=== PATIENT | female | born 1940 | race Caucasian/White ===

== ENCOUNTER 2021-04-08 18:55 | Emergency (ER) | payer OTHER, MEDICARE ==
[2021-04-08 19:45] LABS: Absolute Lymphocytes (CBC) 1.7 K/uL (0.7-4.9); Basophils % 0.4 % (0-1.3); Hematocrit 42.6 % (36.0-45.0); Lymphocytes % 25.6 % (15.3-44.8); MPV 7.7 fL (7.6-11.3); RBC Red Blood Cell Count 4.79 M/uL (3.86-4.86)
[2021-04-08 19:57] LABS: Albumin 3.6 g/dL (3.4-5.0); Bilirubin Direct 0.1 mg/dL (0-0.2); Bilirubin Total 0.3 mg/dL (0.2-1.0); Potassium 4.3 mmol/L (3.5-5.1); Protein, Total 7.5 g/dL (6.4-8.2)
[2021-04-08] MEDS ORDERED: ONDANSETRON 4 MG/2 ML VIAL ONE ×2 (20:33→22:47)
[2021-04-08] MEDS ORDERED: MORPHINE 4 MG/ML SYR ONE (20:33)
[2021-04-08] MEDS ORDERED: NA CHLORIDE 0.9% 500 ML ONE (20:33)
[2021-04-08] MEDS ORDERED: PANTOPRAZOLE 40 MG INJ ONE (20:52)
--- NOTE | 2021-04-08 21:52 | RAD REPORT ---
EXAM DESCRIPTION: CT - Abdomen Pelvis W Contrast - 04/08/2021 9:23 pm CLINICAL HISTORY: Abdominal pain . TECHNIQUE: Computed axial tomography of the abdomen pelvis was obtained. 100 cc Isovue-300 was admin istered intravenously. Oral contrast was not requested which limits evaluation of bowel. All CT scans are performed using dose optimization technique as appropriate and may include automated exposure control or mA/KV adjustment according to patient size. FINDINGS: Large hiatal hernia. The gastric body lies superior to the fundus consistent with a volvul us. The liver, spleen, pancreas, adrenal and kidneys appear unremarkable. Colon diverticulosis. Mild stranding adjacent to the sigmoid colon consistent with diverticulitis. 5 centimeter subserosal uterine fibroid. Several additional smaller masses abut the uterus. 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 Additional masses abut the uterus probably subserosal fibroids. Less likely one cou ld represent an ovarian mass. It is recommended that the patient have a followup ultrasound in 3 gary hs for reassessment
--- NOTE | 2021-04-08 21:52 | RAD REPORT ---
EXAM DESCRIPTION: US - Abdomen Exam Limited - 04/08/2021 8:09 pm CLINICAL HISTORY: Abdominal pain. COMPARISON: 2019 FINDINGS: The gallbladder wall is not thickened. A gallstone is not seen. The biliary tree is upper limits normal caliber IMPRESSION: Unremarkable gallbladder ultrasound.
[2021-04-08] MEDS ORDERED: MORPHINE 2 MG/ML SYR ONE (22:47)
--- NOTE | 2021-04-08 22:53 | EDPHYS ---
Physician Documentation [facility] Name: Anneliese Calabrese Age: 80 yrs Sex: Female : 1940 Arrival Date: 04/08/2021 Time: 18:57 Bed 16 Private MD: Jairon Rivas V ED Physician Farnaz Bruce HPI: 04/08 19:57 This 80 yrs old Female presents to ER via Wheelchair with complaints of kb Vomiting, Abdominal Pain. 19:57 The patient presents to the emergency department with nausea, vomiting. Onset: The kb symptoms/episode began/occurred just prior to arrival. Possible causes: ate bar-b-que sandwich prior to pain starting. The symptoms are aggravated by nothing. The symptoms are alleviated by nothing. Associated signs and symptoms: Pertinent positives: abdominal pain, nausea, vomiting, Pertinent negatives: diarrhea, fever. Severity of symptoms: At their worst the symptoms were moderate in the emergency department the symptoms are unchanged. The patient has not experienced similar symptoms in the past. The patient has not recently seen a physician. Historical: - Allergies: 19:10 No Known Allergies; aa5 - Home Meds: 19:10 None [Active]; aa5 - PMHx: 19:10 None; aa5 - PSHx: 19:10 None; aa5 - Immunization history:: Client reports having NOT received the Covid vaccine. - Social history:: Smoking status: Patient denies any tobacco usage or history of. ROS: 19:55 Constitutional: Negative for fever, chills, and weight loss. kb 19:55 Abdomen/GI: Positive for abdominal pain, nausea and vomiting, Negative for diarrhea, constipation. 19:55 All other systems are negative. Exam: 19:56 Constitutional: This is a well developed, well nourished patient who is awake, alert, kb and in no acute distress. Head/Face: Normocephalic, atraumatic. ENT: Moist Mucous membranes Cardiovascular: Regular rate and rhythm with a normal S1 and S2. No gallops, murmurs, or rubs. No pulse deficits. Respiratory: Respirations even and unlabored. No increased work of breathing, no retractions or nasal flaring. Skin: Warm, dry with normal turgor. Normal color. MS/ Extremity: Pulses equal, no cyanosis. Neurovascular intact. Full, normal range of motion. Neuro: Awake and alert, GCS 15, oriented to person, place, time, and situation. Moves all extremities. Normal gait. Psych: Awake, alert, with orientation to person, place and time. Behavior, mood, and affect are within normal limits. 19:56 Abdomen/GI: Inspection: abdomen appears normal, Bowel sounds: normal, Palpation: soft, in all quadrants, mild abdominal tenderness, in the right upper quadrant. Vital Signs: 19:09 BP 162 / 85; Pulse 79; Resp 18 S; Temp 97.6(TE); Pulse Ox 99% on R/A; Weight 95.71 kg aa5 (R); Height 5 ft. 5 in. (165.10 cm) (R); 23:56 BP 152 / 78; Pulse 81; Resp 19; Temp 98.3; Pulse Ox 97% on R/A; mr2 19:09 Body Mass Index 35.11 (95.71 kg, 165.10 cm) aa5 MDM: 19:12 Patient medically screened. kb 19:56 Data reviewed: vital signs, nurses notes. Data interpreted: Pulse oximetry: on room air kb is 99 %. Interpretation: normal. 22:08 Counseling: I had a detailed discussion with the patient and/or guardian regarding: the kb historical points, exam findings, and any diagnostic results supporting the discharge/admit diagnosis, lab results, radiology results, the need to transfer to another facility. Physician consultation: Landen Lechuga MD was contacted at 22:08, regarding consult, patient's condition, after a discussion of the case, a recommendation for transfer for higher level of care is made. 22:23 ED course: Transfer initiated to [facility]. kb 22:50 ED course: Dr Lopez, thoracic surgery at [facility], accepts pt for transfer. kb 04/08 19:10 Order name: Basic Metabolic Panel kb 04/08 19:10 Order name: CBC with Diff kb 04/08 19:10 Order name: Hepatic Function kb 04/08 19:10 Order name: Lipase kb 04/08 19:11 Order name: Basic Metabolic Panel; Complete Time: 19:58 EDMS 04/08 19:11 Order name: CBC with Automated Diff; Complete Time: 19:49 EDMS 04/08 19:11 Order name: Liver (Hepatic) Function; Complete Time: 19:58 EDMS 04/08 19:11 Order name: Lipase; Complete Time: 19:58 EDMS 04/08 19:16 Order name: US Abdomen Limited; Complete Time: 21:55 kb 04/08 20:24 Order name: CT Abd/Pelvis - IV Contrast Only; Complete Time: 21:55 kb 04/08 20:50 Order name: Troponin (emerg Dept Use Only); Complete Time: 21:09 kb 04/08 22:15 Order name: COVID-19 SARS RT PCR (Document "Date of Onset" if Symptomatic); Complete kb Time: 23:27 04/08 19:10 Order name: IV Saline Lock; Complete Time: 19:43 kb 04/08 19:10 Order name: Labs collected and sent; Complete Time: 19:43 kb 04/08 20:50 Order name: EKG; Complete Time: 20:51 kb 04/08 20:50 Order name: EKG - Nurse/Tech; Complete Time: 23:35 kb 04/08 22:38 Order name: NG Tube; Complete Time: 23:15 kb Administered Medications: 19:38 Drug: NS 0.9% 500 ml Route: IV; Rate: bolus; Site: left antecubital; jt3 19:38 Drug: morphine 2 mg Route: IVP; Site: left antecubital; jt3 19:39 Drug: Zofran (Ondansetron) 4 mg Route: IVP; Site: left antecubital; jt3 19:50 Drug: ProTONIX (pantoprazole) 40 mg Route: IVP; Site: left antecubital; jt3 21:51 Drug: morphine 2 mg Route: IVP; Site: left antecubital; jt3 21:51 Drug: Zofran (Ondansetron) 4 mg Route: IVP; Site: left antecubital; jt3 23:14 Drug: morphine 2 mg Route: IVP; Site: left antecubital; mr2 23:15 Drug: NS 0.9% 1000 ml Route: IV; Rate: 100 ml/hr; Site: left antecubital; mr2 04/09 00:32 Drug: morphine 2 mg Route: IVP; Site: left antecubital; mr2 Disposition Summary: 04/08/21 22:52 Transfer Ordered Transfer Location: [facility] kb Reason: Higher level of care kb Condition: Stable kb Problem: new kb Symptoms: are unchanged kb Accepting Physician: Dr Lopez(04/09/21 01:35) mr2 Diagnosis - Gastric Volvulus kb - Hiatal Hernia kb Forms: - Medication Reconciliation Form kb - SBAR form kb Addendum: 04/10/2021 06:41 Co-signature as Attending Physician, Farnaz Bruce MD I agree with the assessment and s p3 plan of care. Signatures: Dispatcher [employer] EDMS Yenifer Kiran, BICYCLE MECHANIC-C BICYCLE MECHANIC-CkKaci Schuster RN RN bb Whit Burr RN RN aa5 Farnaz Bruce MD MD sp3 Israel Corado RN RN mr2 Gokul Wagner RN RN jt3 Corrections: (The following items were deleted from the chart) 04/09 01:35 04/08 22:52 Dr Lopez kb mr2
--- NOTE | 2021-04-08 22:53 | ER ---
Nurse's Notes [facility] Name: Anneliese Calabrese Age: 80 yrs Sex: Female : 1940 Arrival Date: 04/08/2021 Time: 18:57 Bed 16 Private MD: Jairon Rivas V Diagnosis: Gastric Volvulus;Hiatal Hernia Presentation: 04/08 19:09 Chief complaint: Patient states: upper abd pain after eating a barbecue sandwich, also aa5 reports nausea/vomiting. Coronavirus screen: vomiting. Ebola Screen: No symptoms or risks identified at this time. Initial Sepsis Screen: Does the patient meet any 2 criteria? No. Patient's initial sepsis screen is negative. Does the patient have a suspected source of infection? No. Patient's initial sepsis screen is negative. Risk Assessment: Do you want to hurt yourself or someone else? Patient reports no desire to harm self or others. Onset of symptoms was April 08, 2021. 19:09 Method Of Arrival: Wheelchair aa5 19:09 Acuity: RAMIN 3 aa5 Triage Assessment: 19:15 General: Appears uncomfortable, well nourished, Behavior is calm, cooperative. GI: mr2 Abdomen is round distended, Abdomen is tender to palpation in epigastric area, right upper quadrant and left upper quadrant Reports bloating, intolerance of food, nausea, vomiting. Historical: - Allergies: 19:10 No Known Allergies; aa5 - Home Meds: 19:10 None [Active]; aa5 - PMHx: 19:10 None; aa5 - PSHx: 19:10 None; aa5 - Immunization history:: Client reports having NOT received the Covid vaccine. - Social history:: Smoking status: Patient denies any tobacco usage or history of. Screenin:25 Abuse screen: Denies threats or abuse. Denies injuries from another. Nutritional mr2 screening: No deficits noted. Tuberculosis screening: No symptoms or risk factors identified. Fall Risk No fall in past 12 months (0 pts). IV access (20 points). Ambulatory Aid- None/Bed Rest/Nurse Assist (0 pts). Gait- Weak (10 pts.). Mental Status- Oriented to own ability (0 pts). Assessment: 19:25 Pain: Complains of pain in epigastric area Pain does not radiate. Pain currently is 8 mr2 out of 10 on a pain scale. Alleviated by nothing. Aggravated by eating, drinking, Also complains of nausea. GI: Abdomen is round distended, Reports upper abdominal pain, bloating, indigestion, nausea. Vital Signs: 19:09 BP 162 / 85; Pulse 79; Resp 18 S; Temp 97.6(TE); Pulse Ox 99% on R/A; Weight 95.71 kg aa5 (R); Height 5 ft. 5 in. (165.10 cm) (R); 23:56 BP 152 / 78; Pulse 81; Resp 19; Temp 98.3; Pulse Ox 97% on R/A; mr2 19:09 Body Mass Index 35.11 (95.71 kg, 165.10 cm) aa5 ED Course: 18:57 Patient arrived in ED. am2 18:57 Jairon Rivas MD is Private Physician. am2 19:09 Arm band placed on. aa5 19:10 Triage completed. aa5 19:10 [facility] kb 19:10 Farnaz Bruce MD is Attending Physician. kb 19:11 Gokul Wagner, KIET is Primary Nurse. jt3 19:25 Patient has correct armband on for positive identification. Placed in gown. Bed in low mr2 position. Call light in reach. Side rails up X2. 20:10 US Abdomen Limited In Process Unspecified. EDMS 20:13 Basic Metabolic Panel Sent. jt3 20:13 CBC with Diff Sent. jt3 20:13 Hepatic Function Sent. jt3 20:13 Lipase Sent. jt3 21:23 CT Abd/Pelvis - IV Contrast Only In Process Unspecified. EDMS 22:24 initiated a transfer with Shawna from [facility]. mw2 22:36 Connected Yenifer Kiran [employer] with the Thoracic Surgeon from [facility]. mw2 22:46 awaiting on Covid results to get bed acceptance from [facility]. mw2 22:58 COVID-19 SARS RT PCR (Document "Date of Onset" if Symptomatic) Sent. mr2 23:28 administrative approval given by Shawna Moody/ patient has been accepted to [address] bed 1006/Dr. Lopez accepted the patient in transfer/ report to be called to [phone]. 04/09 00:05 No provider procedures requiring assistance completed. Patient transferred, IV remains mr2 in place. Administered Medications: 04/08 19:38 Drug: NS 0.9% 500 ml Route: IV; Rate: bolus; Site: left antecubital; jt3 19:38 Drug: morphine 2 mg Route: IVP; Site: left antecubital; jt3 19:39 Drug: Zofran (Ondansetron) 4 mg Route: IVP; Site: left antecubital; jt3 19:50 Drug: ProTONIX (pantoprazole) 40 mg Route: IVP; Site: left antecubital; jt3 21:51 Drug: morphine 2 mg Route: IVP; Site: left antecubital; jt3 21:51 Drug: Zofran (Ondansetron) 4 mg Route: IVP; Site: left antecubital; jt3 23:14 Drug: morphine 2 mg Route: IVP; Site: left antecubital; mr2 23:15 Drug: NS 0.9% 1000 ml Route: IV; Rate: 100 ml/hr; Site: left antecubital; mr2 04/09 00:32 Drug: morphine 2 mg Route: IVP; Site: left antecubital; mr2 Outcome: 04/08 22:52 ER care complete, transfer ordered by MD. hernandez 04/09 01:15 Transferred by ground EMS to [facility]. mr2 Condition: stable Instructed on the need for transfer. 01:35 Patient left the ED. mr2 Signatures: Dispatcher [employer] EDYenifer Moreira, CINTIAC BODY FINISHER-Whit Salcedo, RN RN aa5 Miriam Rogers am2 Marii Mccormack mw2 Israel Corado RN RN mr2 Gokul Wagner RN RN jt3 Corrections: (The following items were deleted from the chart) 04/08 19:11 19:09 BP 162 / 85; Pulse 79bpm; Resp 18bpm; Spontaneous; Pulse Ox 99% RA; Temp 97.6F aa5 Temporal; aa5
[2021-04-09] MEDS ORDERED: NA CHLORIDE 0.9% 1,000 ML ONE (00:07)
[2021-04-09] MEDS ORDERED: MORPHINE 2 MG/ML SYR ONE ×2 (00:07→01:22)
[2021-04-09 01:49] VITALS: BP 152/78; TEMP 98.3; O2SAT 97
== END 2021-04-09 01:35 | disposition short-term general hospital (02) ==
LOC: ER 18:55
DX: K31.89 Other diseases of stomach and duodenum (principal); K46.9 Unspecified abdominal hernia without obstruction or gangrene; Z20.822 Contact with and (suspected) exposure to COVID-19
CPT/HCPCS: 93005; 85025; 80048; 36415; 80076; 84484; 83690; 74177; 76705; 96375; 96374; 99285; U0003; Q9967; C9113; J2270 ×2; J7040; J2405 ×2

== ENCOUNTER 2023-01-30 06:55 | Emergency (ER) | payer OTHER, MEDICARE ==
--- OUTSIDE RECORDS SUMMARY | 2023-01-30 07:00 | XMS REPORT | Continuity of Care Document ---
:1940 Author Organization [facility] t Address [address] [facility] [address] [place] [address] Care Team Providers Name Role Phone WANDER LEYVA Primary Care Physician Unavailable ASHLEY CALLES Attending Clinician Unavailable Ashley Calles Attending Clinician LILLIAN CRABTREE Attending Clinician Unavailable Lillian Crabtree DO Attending Clinician Doctor Unassigned, [place] Attending Clinician Unavailable TANYA ANGLIN Attending Clinician Unavailable JANETH MCDOWELL Attending Clinician Unavailable ASHLEY CALLES Admitting Clinician Unavailable Ashley Calles Admitting Clinician LILLIAN CRABTREE Admitting Clinician Unavailable TANYA ANGLIN Admitting Clinician Unavailable Payers Payer Name Policy Type Policy Number Effective Date Expiration Date Shell riya [facility] MEDICARE [id number] 2021 SUPPLEMENT 00:00:00 MEDICARE PART A \\T\\ [id number] 2005 B 00:00:00 [facility] [id number] 2005 MEDICARE SUPPLEMENT 00:00:00 [facility]/MEDICARE [id number] 2020 COMPLETE 00:00:00 Problems Condition Condition Condition Status Onset Resolution Last Treating Co mments Source Name Details Category Date Date Treatment Clinician Date R RIB FX R RIB FX Diagnosis Active 2021-12-08 Memoria Active 11-30 21:55:00 l 11/30/2021 00:00: Ceasar mustafa [address] Gastric Gastric Disease Active 2020-[address] [facility] Art Dizziness Dizziness Disease Active [facility] 00:[facility]: Medical 00 Art Bilateral Bilateral Disease Active [facility] leg edema leg edema 8-27 [facility] 00:00: Medical Art Weakness Weakness Disease [facility] Medical 00 Art Osteoarthr Osteoarthr Disease Active [facility] itis itis 4-23 [facility] 00:[facility]: Medical 00 Art 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 4-23 Stacey kes emia emia 00:00: Medical 00 Art Obesity Obesity Disease Active [facility] 00[facility]: Medical 00 Art Benign Benign Disease Active [facility] essential essential 4-23 [facility] hypertensi hypertensi 00:00: Me dical on Center Overactive Overactive Disease Active [facility] bladder bladder 4-23 [facility] 00:00: Medical 00 Art Osteopenia Osteopenia Disease Active [facility] 00[facility]: Medical 00 Art Anemia Anemia Problem Active 2021-12-08 Yomi tessa (disorder) (disorder) 00:10:23 l Active [place] Problem 12/08/2021 [facility] Arthritis Arthritis Problem Active 2021-12-08 Memoria (disorder) (disorder) 00:10:23 l Active Den Problem 12/08/2021 [facility] Cholecysti Cholecyst Problem Active 2021-12-08 Memoria tis itis 00:10:23 l (disorder) (disorder) He rmann Active Problem 12/08/2021 [facility] Non-alcoho Non-alcoh Problem Active 2021-12-08 Memoria lic fatty olic fatty 00:10:23 l liver liver Den (disorder) (disorder) Active Problem 12/08/2021 [facility] Vertigo Vertigo Problem Active 2021-12-08 Me moria (finding) (finding) 00:10:23 l Active [place] Problem 12/08/2021 [facility] History of Past Illness Condition Condition Condition Status Onset Resolution Last Treating Co mments Source Name Details Category Date Date Treatment Clinician Date Anemia, Anemia, Problem 2021-12-08 2021-12-08 Memoria unspecifie unspecifie 12-05 00:10:23 00:10:23 l d d 20:50: Farner 12/05/2021 00 12/08/2021 [facility] Other Other Problem 2021-12-08 2021-12-08 Memoria diseases diseases 12-05 00:10:23 00:10:23 l of stomach of stomach 20:50: He rmann and and 00 duodenum duodenum 12/05/2021 12/08/2021 [facility] Unspecifie Unspecifi Problem 2021-12-08 2021-12-08 Memoria d ed 12-05 00:10:23 00:10:23 l osteoarthr osteoarthr 20:50: He rmann itis, itis, 00 unspecifie unspecifie d site d site 12/05/2021 2 [facility] Cholecysti Cholecyst Problem 2021-12-08 2021-12-08 Memoria tis, itis, 12-05 00:10:23 00:10:23 l unspecifie unspecifie 20:50: He rmann d d 00 12/05/2021 2 [facility] Fatty Fatty Problem 2021-12-08 2021-12-08 M emoria (change (change 12-05 00:10:23 00:10:23 l of) liver, of) liver, 20:50: He rmann not not 00 elsewhere elsewhere classified classified 12/05/2021 12/08/2021 [facility] Dizziness Dizziness Problem 2021-12-08 2021-12-08 Memoria and and 12-05 00:10:23 00:10:23 l giddiness giddiness 20:50: Herm samuel 12/05/2021 00 12/08/2021 [facility] Allergies, Adverse Reactions, Alerts Allergy Allergy Status Severity Reaction(s) Onset Inactive Treating Comm ents Source Name Type Date Date Clinician No Known No Known Active Memori a Medicati Medicati l on on Den Allergie Allergie s s NO KNOWN Allergy Active [facility] NO KNOWN Drug Active Univers ALLERGIE Class ity of S [facility] Social History Social Habit Start Date Stop Date Quantity Comments Source Social History 2021-11-30 2021-11-30 [facility] ermann 23:06:22 23:06:22 Exposure to 2021-11-20 2021-11-30 Not sure [facility]-CoV-2 00:00:00 05:12:00 [facility] (event) [place] Alcohol intake 2021-04-09 2021-04-09 Ex-drinker [facility] [facility] 00:00:00 00:00:00 (finding) [facility] Tobacco use and 2014-09-30 2014-09-30 Never used Universit y of exposure 00:00:00 00:00:00 [facility] History of 1989-06-[address] [facility] [place] [facility] At [birth year] [facility] 00:00:00 00:00:00 [facility] Smoking Status Start Date Stop Date Source Ex-smoker 2021-04-09 00:00:00 2021-04-09 00:00:00 [facility] Never smoker [facility] Medications Ordered Filled Start Stop Current Ordering Indication Dosage Frequency Signature Comments Components Source Medication Medication Date Date Medication? Clinician (SIG) Name Name acetaminoph Yes 1,000 mg = Memoria en 500 mg - 2 tab, PO, l oral 20:30: PRN, PRN Den tablet. 00 Pain Score 1-3, X 14 day, # 100 tab, 0 Refill(s), Pharmacy: [facility] [id number], 165.1, cm, 11/30/21 18:31:00 CDT, Height, 94.176, kg, 11/30/21 18:31:00 CDT, Weight bacitracin Yes 1 appl, Yomi tessa topical 6-28 TOP, l 20:30: Daily, 0 Den 00 Refill(s) docusate-se Yes 2 tab, PO, Memoria nna 50 6-28 Q12H, X 7 l mg-8.6 mg 20:30: day, # 28 Her fish oral tablet 00 tab, 0 Refill(s), Pharmacy: [facility] [id number], 165.1, cm, 11/30/21 18:31:00 CDT, Height, 94.176, kg, 11/30/21 18:31:00 CDT, Weight gabapentin Yes 100 mg = 1 M emoria 100 mg oral 6-28 cap, PO, l capsule 20:30: Bedtime, # Herm samuel 00 7 cap, 0 Refill(s), Pharmacy: [facility] [id number], 165.1, cm, 11/30/21 18:31:00 CDT, Height, 94.176, kg, 11/30/21 18:31:00 CDT, Weight Lidoderm 5% Yes 1 patch, Me moria topical 6-28 TOP, Q24H, l film 20:30: X 30 day, Den (patch) 00 # 30 patch, 0 Refill(s), Pharmacy: [facility] [id number], 165.1, cm, 11/30/21 18:31:00 CDT, Height, 94.176, kg, 11/30/21 18:31:00 CDT, Weight naproxen Yes 500 mg = 1 Mem oria 500 mg oral 6-28 tab, PO, l tablet 20:30: Q12H, X 14 Angela nn 00 day, # 28 tab, 0 Refill(s), Pharmacy: [facility] [id number], 165.1, cm, 11/30/21 18:31:00 CDT, Height, 94.176, kg, 11/30/21 18:31:00 CDT, Weight polyethylen Yes 17 gm, PO, Memoria e glycol 6-28 Q12H, X 7 l 3350 oral 20:30: day, # 255 He rmann powder for 00 gm, 0 reconstitut Refill(s), [facility] Pharmacy: [facility] [id number], 165.1, cm, 11/30/21 18:31:00 CDT, Height, 94.176, kg, 11/30/21 18:31:00 CDT, Weight gabapentin No Notes: Memor ia 6-28 (Same as: l 02:00: Neurontin) acetaminoph No Notes: Max Memoria en 12-04 acetaminop l 15:52: hen 4000 [place] 00 mg/day (4 gm/day). (Same as: Tylenol Extra Strength) bacitracin No 1 appl, Yomi tessa topical 12-03 Route: l 14:00: TOP, Den 00 Daily, Drug form: OINT, Start date: 12/03/21 9:00:00 CDT, Duration: 30 day, Stop date: 01/01/22 9:00:00 CDT, 0 Lovenox No Notes: Memoria 6-24 (Same as: l 21:00: Lovenox) Isolyte S No Notes: Memori a PH-7.4 -24 (Same as: l (Bolus) IV 09:12: Isolyte S He rmann 00 PH7.4, Normosol-R PH 7.4, Plasma-Lyt e A ) remove No 1 patch, Memoria patch 12-01 Route: l 09:00: TOP, Q24H, [place]ner 00 Drug form: ERFILM, Start date: 12/01/21 4:00:00 CDT, Duration: 30 day, Stop date: 12/30/21 4:00:00 CDT, 0 levETIRAcet No Notes: Yomi tessa am 500 mg -24 (Same l oral tablet 08:00: as:Keppra) naproxen No Notes: Memoria 6-24 (Same as: l 02:00: Naprosyn) Take with food. docusate-se No Notes: Yomi tessa nna 50 6-24 (Same as l mg-8.6 mg 02:00: Senokot-S) He rmann oral tablet 00 Equiv. to Emma-Colac e. MiraLax No Notes: Memoria 6-24 Dissolve l 02:00: in 8 oz of Den 00 water or juice. (Same as: Miralax) acetaminoph No Notes: Max Memoria en 6-23 acetaminop l 23:00: hen 4000 [place] 00 mg/day (4 gm/day). (Same as: Tylenol Extra Strength) gabapentin No Notes: Memor ia 300 mg oral 6-23 (Same as: l capsule 21:00: Neurontin) Herm samuel 00 methocarbam No Notes: Yomi tessa ol 6-23 (Same l 21:00: as:Robaxin Den ) Lidoderm 5% No Notes: Yomi tessa topical 6-23 Patch is l film 21:00: applied to Farner (patch) 00 intact skin to cover painful area for up to 12 hours in a 24-hour period (12 hours on and 12 hours off). Please indicate the location of applicatio n site. Site 1: Remove old patch before applicatio n of new patch. (Same as Aspercreme Lidocaine Patch) levETIRAcet No Notes: Yomi tessa am + Sodium 6-23 Same as l Chloride 20:00: Keppra Her fish 0.9% IV 100 00 MEDICATION mL WASTE Product Size: 500 mg Product Wasted: ___ mg oxyCODONE No Notes: Memori a immediate 6-23 (Same as: l release 19:36: Roxicodone Herm samuel ) EPINEPHrine No Notes: Yomi tessa -lidocaine 6-23 (Same as: l 1:100,000-2 18:28: Xylocaine H ermann % 00 w/Epinephr injectable ine) solution Isolyte S No Notes: Memori a PH-7.4 6-23 (Same as: l (Bolus) IV 18:10: Isolyte S He rmann 00 PH7.4, Normosol-R PH 7.4, Plasma-Lyt e A ) morphine No Notes: Memoria Sulfate 6-23 (Same l 17:19: as:MORPhin [place] 00 e Sulfate) FENTanyl PF No 50ug 50 mcg, Un isma (SUBLIMAZE 11-30 Slow IV ity o f (PF)) 13:30: 12:23 Push, [place] injection 00 :00 ONCE, 1 Medical 50 mcg dose, On Branch Elisa 11/30/21 at 0830, Routine iopamidol No [id number] 100mL 100 mL, Univers (ISOVUE 11-30 Intravenou ity o f 370-500 mL) 12:15: 10:59 s, ONCE, 1 [place] injection 00 :00 dose, On Medica l 100 mL Elisa Branch 11/30/21 at 0715, Routine FENTanyl PF No 50ug 50 mcg, Un isma (SUBLIMAZE 11-30 Slow IV ity o f (PF)) 11:45: 11:45 Push, [place] injection 00 :00 ONCE, 1 Medical 50 mcg dose, On Branch [facility] 11/30/21 at 0645, Routine multivitami 2020-06 Yes 1{capsu QD Take [address] n capsule 1-02 le} capsule by Luke s 15:33: mouth Medical 55 daily. Art cholecalcif 2020-06 Yes 1000U QD Take 1,[address] [facility] shante, 1-02 Units by [facility] vitamin D3, 15:33: mouth Medic al 25 mcg 55 daily. Center (1,000 unit) capsule cyanocobala 2020-06 Yes 2000ug QD Take 2,[address] min 2000 1-02 mcg by Lukes MCG tablet 15:33: mouth Medica l 55 daily. Center cholecalcif 2020-06 Yes 1000U Take 1,[address] shante, 1-02 Units by [facility]ukes vitamin D3, 15:33: mouth. Medi sophie 25 mcg 55 Center (1,000 unit) capsule hydrochloro 2015-06 Yes [id number] 12.5mg Take 1 Univers thiazide 0-06 capsule by ity o f (ESIDRIX) 00:00: mouth [place] 12.5 mg 00 daily. Medical capsule Branch hydrochloro 2015-06 Yes [id number] 12.5mg Take 1 Univers thiazide 0-06 capsule by ity o f (ESIDRIX) 00:00: mouth [place] 12.5 mg 00 daily. Medical capsule Branch MULTIVITS-M Yes Take by Uni vers IN/IRON/FA/ 7-20 mouth ity of LUTEIN 09:38: daily. [place] (CENTR 57 Medical [facility] WOMEN ORAL) CYANOCOBALA Yes 2400ug Place Uni vers MIN/COBAMAM 7-20 2,400 mcg ity of [place] (B12 09:38: [facility] ) 57 tongue Medical daily. Branch Cholecalcif Yes 1000U Take 1,000 Univers shante, 7-20 Units by ity of Vitamin D3, 09:38: mouth [place] (VITAMIN 57 daily. Medical D3) 1,000 Branch unit capsule MULTIVITS-M Yes Take by Uni vers IN/IRON/FA/ 7-20 mouth ity of LUTEIN 09:38: daily. [place] (CENTR 57 Medical SILVER [place] WOMEN ORAL) CYANOCOBALA Yes 2400ug Place Uni vers MIN/COBAMAM 7-20 2,400 mcg ity of [place] (B12 09:38: under the [facility]) 57 tongue Medical daily. Branch Cholecalcif Yes 1000U Take 1,000 Univers shante, 7-20 Units by ity of Vitamin D3, 09:38: mouth [place] (VITAMIN 57 daily. Medical D3) 1,000 Branch unit capsule Immunizations Ordered Filled Immunization Date Status Comments [facility] e Immunization Name Name Td 2021-11-30 Completed [facility] 00:00:00 [facility] Vital Signs Vital Name Observation Time Observation Value Comments Source Systolic blood 2021-11-30 12:30:00 163 [facility] Diastolic blood 2021-11-30 12:30:00 80 mm[Hg] [facility] Heart rate 2021-11-30 12:30:00 86 /min [facility] Respiratory rate 2021-11-30 12:30:00 14 /min [facility] Oxygen saturation in 2021-11-30 12:30:00 96 /min [facility] Arterial blood by [facility] Pulse oximetry Branch Body temperature 2021-11-30 10:19:00 36.06 [facility] WEIGHT 2021-04-11 03:05:00 95.754 kg HEIGHT 2021-04-09 02:44:00 165.1 cm WEIGHT 2021-04-09 02:44:00 93.2 kg WEIGHT 2021-04-11 03:05:00 95.754 kg HEIGHT 2021-04-09 02:44:00 165.1 cm WEIGHT 2021-04-09 02:44:00 93.2 kg Heart Rate 2021-12-05 20:36:22 [facility] [place] Temperature Oral (F) 2021-12-05 20:36:16 97.9 F [facility] [place] Systolic (mm Hg) 2021-12-05 20:36:14 Yomi rial [place] Diastolic (mm Hg) 2021-12-05 20:36:14 Mem orial Den Heart Rate 2021-12-05 20:36:14 [facility] [place] Heart Rate 2021-12-05 16:19:31 [facility] [place] Systolic (mm Hg) 2021-12-05 16:19:25 Yomi rial Den Diastolic (mm Hg) 2021-12-05 16:19:25 Mem orial Den Temperature Oral (F) 2021-12-05 16:18:04 98 F Memorial Den Temperature Oral (F) 2021-12-05 12:35:45 97.4 F [facility] [place] Systolic (mm Hg) 2021-12-05 12:35:37 Yomi rial [place] Diastolic (mm Hg) 2021-12-05 12:35:37 Mem orial Den Respitory Rate 2021-12-05 09:56:21 Memori al Den Respitory Rate 2021-12-05 06:28:00 Memori al Den Respitory Rate 2021-12-05 03:24:00 Memori al [place] Heart Rate 2021-12-04 05:35:04 [facility] [place] Respitory Rate 2021-12-04 05:35:04 Memori al [place] Systolic (mm Hg) 2021-12-04 05:34:52 Yomi rial Den Diastolic (mm Hg) 2021-12-04 05:34:52 Mem orial Den Heart Rate 2021-12-04 05:34:52 [facility] [place] Heart Rate 2021-12-04 01:14:29 Memorial Den Respitory Rate 2021-12-04 01:14:29 Memori al Den Systolic (mm Hg) 2021-12-04 01:13:25 Yomi rial [place] Diastolic (mm Hg) 2021-12-04 01:13:25 Mem orial [place] Temperature Oral (F) 2021-12-04 01:13:01 97.7 F [facility] [place] Respitory Rate 2021-12-03 20:40:21 Memori al [place] Systolic (mm Hg) 2021-12-03 20:39:16 Yomi rial Den Diastolic (mm Hg) 2021-12-03 20:39:16 Mem orial Den Temperature Oral (F) 2021-12-03 20:39:14 97.5 F Memorial Den Temperature Oral (F) 2021-12-03 20:18:00 97.8 F Memorial Den Height 2021-11-30 23:31:00 165.1 cm Memorial Den Weight 2021-11-30 23:31:00 Memorial Den BMI Calculated 2021-11-30 23:31:00 Memori al [place] Height 2021-11-30 14:03:00 162.56 cm Memorial Den BMI Calculated 2021-11-30 14:03:00 Memori al [place] Weight 2021-11-30 14:03:00 [facility] Den Procedures Procedure Date / Time Performing Clinician Source Performed [place] TUBE THORACOSTOMY 2021-11-30 12:40:07 Lillian Crabtree [facility] INCLUDES WATER SEAL Medical Bran ch XR CHEST 1 VW 2021-11-30 12:37:13 Lillian Crabtree [facility] CT TRAUMA THORAX W 2021-11-30 11:05:00 Lillian Crabtree [facility] CONTRAST [facility] CT TRAUMA ABDOMEN 2021-11-30 11:05:00 Lillian Crabtree [facility] PELVIS W CONTRAST [facility] CT TRAUMA HEAD WO 2021-11-30 11:03:00 Lillian Crabtree [facility] CONTRAST [facility] CT TRAUMA CERVICAL 2021-11-30 11:03:00 Lillian Crabtree [facility] SPINE WO [facility] CBC WITH DIFF 2021-11-30 10:22:00 Lillian Crabtree [facility] HB ABO GROUPING 2021-11-30 10:22:00 [facility] COMP. METABOLIC PANEL 2021-11-30 10:21:00 Lillian Crabtree [facility] ([id number]) [facility] CONSENT/REFUSAL FOR 2021-11-30 10:04:12 Doctor Unassigned, No Un [facility] DIAGNOSIS AND TREATMENT Name Medical Branch Plan of Care Planned Activity Planned Date Details Comments Source Future Scheduled 2023-02-08 Influenza Vaccine (#1) [facility] 00:00:00 [code = Influenza Medical Ce nter Vaccine (#1)] Future Scheduled 2022-06-[address] [facility] Test 00:00:00 (12+) [code = Medical Center DEPRESSION SCREENING (12+)] Future Scheduled 2022-06-10 FALLS RISK SCREENING [facility] Test 00:00:00 [code = FALLS RISK Medical C enter SCREENING] Future Scheduled 2022-04-[address] [facility] Test 00:00:00 Counseling and Medical Cente r Screening (12+) [code = Tobacco Cessation Counseling and Screening (12+)] Future Scheduled 2006-09-[address] [facility] Test 00:00:00 WELLNESS (YEAR 2 or Medical Center FIRST YEAR if no IPPE) [code = MEDICARE ANNUAL WELLNESS (YEAR 2 or FIRST YEAR if no IPPE)] Future Scheduled 2005 PNEUMOCOCCAL 65+ YRS [facility] Test 00:00:00 (1 - PCV) [code = Medical Ce nter PNEUMOCOCCAL 65+ YRS (1 - PCV)] Future Scheduled 1990 SHINGLES VACCINES ([address] [facility] Test 00:00:00 of 2) [code = SHINGLES Medic al Center VACCINES (1 of 2)] Future Scheduled 1959-09-13 DTAP/TDAP/TD VACCINES [facility] 00:00:00 (1 - Tdap) [code = Medical C enter DTAP/TDAP/TD VACCINES (1 - Tdap)] Future Scheduled 1941-03-14 COVID-19 VACCINE (#1) [facility] 00:00:00 [code = COVID-[address] VACCINE (#1)] Future Scheduled 1940 DXA SCAN [code = DXA [facility] Test 00:00:00 SCAN] Medical Center Encounters Start End Encounter Admission Attending Care Care Encounter Source Date/Time Date/Time Type Type Clinicians Facility Department ID 2022-01-11 Outpatient [facility] [id number] [place] 06:17:57 [id number] [facility] 2021-11-30 2021-12-05 Inpatient [facility] [id number] [facility] 14:00:00 22:15:00 [facility] 74 l [facility] 2021-11-30 2021-12-05 Inpatient E [id number] 14:38:00 17:15:00 ASHLEY 2021-11-30 2021-12-05 Outpatient Marli [facility] [id number] 09:00:00 17:15:00 Ashley Vann 2021-11-30 2021-11-30 Outpatient Marli [facility] [id number] 09:00:00 09:00:00 Ashley Temple 2021-11-30 2021-11-30 Emergency X BRO [facility] ERT [id number] Univers 05:08:00 08:21:00 LILLIAN win of [facility] 2021-11-30 2021-11-30 [facility] [id number] Univers 05:08:00 08:21:00 Lillian RICHARD [id number] ity of [place] [id number] [facility] [id number] [facility] 084 Branch 2021-11-30 2021-11-30 Orders Doctor VAZQUEZ [id number] Univers 00:00:00 00:00:00 Only Unassigned, ANNAMARIE [id number] ity of [facility] [id number] [facility] [id number] [facility] 009 Branch 2021-04-09 2021-04-11 Inpatient ER DERREK, SLE Surgery [id number] [facility] 02:27:00 15:33:00 TANYA 2020-07-05 2020-07-05 Outpatient Srinivasan MCDOWELL [facility] [id number] Univers 12:30:00 12:30:00 JANETH win [facility] Results Test Description Test Time Test Comments Results Result Comments Source CHEM PANEL 2021-12-04 08:43:00 Test Item Value Reference Range Interpretation Comme nts Glucose Lvl (test code = Glucose Lvl) 105 70-99 [facility]2022-06-27 08:43:00 Test Item Value Reference Range Interpretation Comments BUN (test code = BUN) 15 7-22 [facility]2022-06-27 08:43:00 Test Item Value Reference Range Interpretation Comments Creatinine Lvl (test code = Creatinine 0.69 0.50-1.40 Lvl) [facility]2022-06-27 08:43:00 Test Item Value Reference Range Interpretation Comments Sodium Lvl (test code = Sodium Lvl) 141 135-145 [facility]2022-06-27 08:43:00 Test Item Value Reference Range Interpretation Comments Potassium Lvl (test code = Potassium 4.2 3.5-5.1 Lvl) [facility]2022-06-27 08:43:00 Test Item Value Reference Range Interpretation Comments Chloride Lvl (test code = Chloride Lvl) 105 95-109 [facility]2022-06-27 08:43:00 Test Item Value Reference Range Interpretation Comments CO2 (test code = CO2) 30 24-32 [facility]2022-06-27 08:43:00 Test Item Value Reference Range Interpretation Comments Calcium Lvl (test code = Calcium Lvl) 8.8 8.5-10.5 [facility]2022-06-27 08:43:00 Test Item Value Reference Range Interpretation Comments AGAP (test code = AGAP) 10.2 10.0-20.0 [facility]2022-06-27 08:43:00 Test Item Value Reference Range Interpretation Comments eGFR (test code = eGFR) 82 [id number] 08:43:00 Test Item Value Reference Range Interpretation Comments Segs (test code = Segs) 58.8 45.0-75.0 [id number] 08:43:00 Test Item Value Reference Range Interpretation Comments Lymphocytes (test code = Lymphocytes) 30.1 20.0-40.0 [place] [id number] 08:43:00 Test Item Value Reference Range Interpretation Comments Monocytes (test code = Monocytes) 6.3 2.0-12.0 [place] [id number] 08:43:00 Test Item Value Reference Range Interpretation Comments Eosinophils (test code = 4.3 See_Comment [A utomated message] The Eosinophils) system which ge nerated this result tra nsmitted reference range : <=4.0. The reference r parag was not used to int erpret this result as normal/abnormal . [place] [address]73-06-27 08:43:00 Test Item Value Reference Range Interpretation Comments Basophils (test code = 0.5 See_Comment [Aut omated message] The Basophils) system which ge nerated this result tra nsmitted reference range : <=1.0. The reference r parag was not used to int erpret this result as normal/abnormal . [place] [id number] 08:43:00 Test Item Value Reference Range Interpretation Comments Neutrophils # (test code = Neutrophils 3.2 1.5-8.1 #) [place] [address]73-06-27 08:43:00 Test Item Value Reference Range Interpretation Comments Lymphocytes # (test code = Lymphocytes 1.6 1.0-5.5 #) [place] [address]73-06-27 08:43:00 Test Item Value Reference Range Interpretation Comments Monocytes # (test code 0.3 See_Comment [Aut omated message] The = Monocytes #) system which generated this result tra nsmitted reference range : <=0.8. The reference r parag was not used to int erpret this result as normal/abnormal . [place] [id number] 08:43:00 Test Item Value Reference Range Interpretation Comments Eosinophils # (test code 0.2 See_Comment [A utomated message] The = Eosinophils #) system whic h generated this result tra nsmitted reference range : <=0.5. The reference r parag was not used to int erpret this result as normal/abnormal . [place] [address]73-06-27 08:43:00 Test Item Value Reference Range Interpretation Comments WBC (test code = WBC) 5.5 3.7-10.4 [place] [id number] 08:43:00 Test Item Value Reference Range Interpretation Comments RBC (test code = RBC) 3.44 4.20-5.40 [facility]XtuqhnnPLPAKXSLQF8020-78-65 08:43:00 Test Item Value Reference Range Interpretation Comments Hgb (test code = Hgb) 10.2 12.0-16.0 [place] [address]-06-27 08:43:00 Test Item Value Reference Range Interpretation Comments Hct (test code = Hct) 30.6 36.0-48.0 [place] [address]-06-27 08:43:00 Test Item Value Reference Range Interpretation Comments MCV (test code = MCV) 89.0 80.0-98.0 [place] [address]-06-27 08:43:00 Test Item Value Reference Range Interpretation Comments MCH (test code = MCH) 29.7 pg 27.0-31.0 [place] 367262-06-27 08:43:00 Test Item Value Reference Range Interpretation Comments MCHC (test code = MCHC) 33.4 32.0-36.0 [facility] CampusAwwzrxsCWMNGAROKX4496-91-50 08:43:00 Test Item Value Reference Range Interpretation Comments RDW (test code = RDW) 13.3 11.5-14.5 [facility] CampusQibiesvKRGIRZIKYY6474-57-40 08:43:00 Test Item Value Reference Range Interpretation Comments Platelet (test code = Platelet) 180 133-450 [facility] CampusTvyujlbBKZNPTRSOX0073-28-19 08:43:00 Test Item Value Reference Range Interpretation Comments MPV (test code = MPV) 7.8 7.4-10.4 [place] [address]-06-25 23:51:00 Test Item Value Reference Range Interpretation Comments Anti-Xa Low Molecular Heparin (test 0.30 code = Anti-Xa Low Molecular Heparin) [facility] CampusBzmgfmnTIUWGNJNBC8877-38-11 11:34:00 Test Item Value Reference Range Interpretation Comments WBC (test code = WBC) 6.8 3.7-10.4 [place] 367262-06-25 11:34:00 Test Item Value Reference Range Interpretation Comments RBC (test code = RBC) 3.32 4.20-5.40 [place] 367262-06-25 11:34:00 Test Item Value Reference Range Interpretation Comments Hgb (test code = Hgb) 10.2 12.0-16.0 [facility] CampusFpahdhuWIVKZLIYSM4429-89-23 11:34:00 Test Item Value Reference Range Interpretation Comments Hct (test code = Hct) 29.3 36.0-48.0 [facility] CampusMutlawnULDBEJYWSO6298-08-80 11:34:00 Test Item Value Reference Range Interpretation Comments MCV (test code = MCV) 88.3 80.0-98.0 [place] 367262-06-25 11:34:00 Test Item Value Reference Range Interpretation Comments MCH (test code = MCH) 30.7 pg 27.0-31.0 [facility] CampusXresojwJUZXOVVISH4468-02-27 11:34:00 Test Item Value Reference Range Interpretation Comments MCHC (test code = MCHC) 34.7 32.0-36.0 [facility] CampusWqtmlfhFDJKEGXJYX6457-19-10 11:34:00 Test Item Value Reference Range Interpretation Comments RDW (test code = RDW) 13.2 11.5-14.5 [place] 367262-06-25 11:34:00 Test Item Value Reference Range Interpretation Comments Platelet (test code = Platelet) 137 133-450 [facility] CampusFettrqzLJJKICSDQR3204-60-72 11:34:00 Test Item Value Reference Range Interpretation Comments MPV (test code = MPV) 8.0 7.4-10.4 [facility] CampusHqnsvonUDDZZPMCPN9277-86-23 11:34:00 Test Item Value Reference Range Interpretation Comments Segs (test code = Segs) 75.2 45.0-75.0 [facility] CampusVdowxdcPKOSKOSIQS4027-72-36 11:34:00 Test Item Value Reference Range Interpretation Comments Lymphocytes (test code = Lymphocytes) 17.4 20.0-40.0 [place] 367262-06-25 11:34:00 Test Item Value Reference Range Interpretation Comments Monocytes (test code = Monocytes) 5.5 2.0-12.0 [place] [address]-06-25 11:34:00 Test Item Value Reference Range Interpretation Comments Eosinophils (test code = 1.7 See_Comment [A utomated message] The Eosinophils) system which ge nerated this result tra nsmitted reference range : <=4.0. The reference r parag was not used to int erpret this result as normal/abnormal . [place] [address]-06-25 11:34:00 Test Item Value Reference Range Interpretation Comments Basophils (test code = 0.2 See_Comment [Aut omated message] The Basophils) system which ge nerated this result tra nsmitted reference range : <=1.0. The reference r parag was not used to int erpret this result as normal/abnormal . [place] 367262-06-25 11:34:00 Test Item Value Reference Range Interpretation Comments Neutrophils # (test code = Neutrophils 5.1 1.5-8.1 #) [place] 367262-06-25 11:34:00 Test Item Value Reference Range Interpretation Comments Lymphocytes # (test code = Lymphocytes 1.2 1.0-5.5 #) [place] [address]-06-25 11:34:00 Test Item Value Reference Range Interpretation Comments Monocytes # (test code 0.4 See_Comment [Aut omated message] The = Monocytes #) system which generated this result tra nsmitted reference range : <=0.8. The reference r parag was not used to int erpret this result as normal/abnormal . [place] 367262-06-25 11:34:00 Test Item Value Reference Range Interpretation Comments Eosinophils # (test code 0.1 See_Comment [A utomated message] The = Eosinophils #) system whic h generated this result tra nsmitted reference range : <=0.5. The reference r parag was not used to int erpret this result as normal/abnormal . [place] 041562-06-25 08:46:00 Test Item Value Reference Range Interpretation Comments Calcium Lvl (test code = Calcium Lvl) 8.6 8.5-10.5 [place] 041562-06-25 08:46:00 Test Item Value Reference Range Interpretation Comments AGAP (test code = AGAP) 8.6 10.0-20.0 [place] 041562-06-25 08:46:00 Test Item Value Reference Range Interpretation Comments eGFR (test code = eGFR) 82 [place] 041562-06-25 08:46:00 Test Item Value Reference Range Interpretation Comments Glucose Lvl (test code = Glucose Lvl) 108 70-99 [facility]WT4693[facility] 08:46:00 Test Item Value Reference Range Interpretation Comments BUN (test code = BUN) 16 - [facility]2022-06-25 08:46:00 Test Item Value Reference Range Interpretation Comments Creatinine Lvl (test code = Creatinine 0.70 0.50-1.40 Lvl) [facility]2022-06-25 08:46:00 Test Item Value Reference Range Interpretation Comments Sodium Lvl (test code = Sodium Lvl) 137 135-145 [place] 041562-06-25 08:46:00 Test Item Value Reference Range Interpretation Comments Potassium Lvl (test code = Potassium 4.6 3.5-5.1 Lvl) [facility]2022-06-25 08:46:00 Test Item Value Reference Range Interpretation Comments Chloride Lvl (test code = Chloride Lvl) 104 95-109 [facility]2022-06-25 08:46:00 Test Item Value Reference Range Interpretation Comments CO2 (test code = CO2) [facility]2022-06-24 08:00:00 Test Item Value Reference Range Interpretation Comments Glucose Lvl (test code = Glucose Lvl) 118 70-99 [place] 041562-06-24 08:00:00 Test Item Value Reference Range Interpretation Comments BUN (test code = BUN) 14 12-29 [facility]2022-06-24 08:00:00 Test Item Value Reference Range Interpretation Comments Creatinine Lvl (test code = Creatinine 0.78 0.50-1.40 Lvl) [facility]2022-06-24 08:00:00 Test Item Value Reference Range Interpretation Comments Sodium Lvl (test code = Sodium Lvl) 141 135-145 [place] 041562-06-24 08:00:00 Test Item Value Reference Range Interpretation Comments Potassium Lvl (test code = Potassium 4.1 3.5-5.1 Lvl) [facility]2022-06-24 08:00:00 Test Item Value Reference Range Interpretation Comments Chloride Lvl (test code = Chloride Lvl) 106 95-109 [place] 041562-06-24 08:00:00 Test Item Value Reference Range Interpretation Comments CO2 (test code = CO2) 30 [place] 041562-06-24 08:00:00 Test Item Value Reference Range Interpretation Comments AGAP (test code = AGAP) 9.1 10.0-20.0 [place] 041562-06-24 08:00:00 Test Item Value Reference Range Interpretation Comments Calcium Lvl (test code = Calcium Lvl) 8.8 8.5-10.5 [place] 041562-06-24 08:00:00 Test Item Value Reference Range Interpretation Comments eGFR (test code = eGFR) 72 [place] 041562-06-24 08:00:00 Test Item Value Reference Range Interpretation Comments Magnesium Lvl (test code = Magnesium 2.4 1.8-2.4 Lvl) [place] 041562-06-24 08:00:00 Test Item Value Reference Range Interpretation Comments Phosphorus (test code = Phosphorus) 4.7 2.5-4.5 [place] 367262-06-24 08:00:00 Test Item Value Reference Range Interpretation Comments WBC (test code = WBC) 8.6 3.7-10.4 [place] 367262-06-24 08:00:00 Test Item Value Reference Range Interpretation Comments RBC (test code = RBC) 3.60 4.20-5.40 [place] 367262-06-24 08:00:00 Test Item Value Reference Range Interpretation Comments Hgb (test code = Hgb) 10.7 12.0-16.0 [place] [address]-06-24 08:00:00 Test Item Value Reference Range Interpretation Comments Hct (test code = Hct) 32.2 36.0-48.0 [place] [address]-06-24 08:00:00 Test Item Value Reference Range Interpretation Comments MCV (test code = MCV) 89.2 80.0-98.0 [place] [address]-06-24 08:00:00 Test Item Value Reference Range Interpretation Comments MCH (test code = MCH) 29.7 pg 27.0-31.0 [place] 367262-06-24 08:00:00 Test Item Value Reference Range Interpretation Comments MCHC (test code = MCHC) 33.3 32.0-36.0 [place] 367262-06-24 08:00:00 Test Item Value Reference Range Interpretation Comments RDW (test code = RDW) 13.4 11.5-14.5 [place] 367262-06-24 08:00:00 Test Item Value Reference Range Interpretation Comments Platelet (test code = Platelet) 159 133-450 [place] 367262-06-24 08:00:00 Test Item Value Reference Range Interpretation Comments MPV (test code = MPV) 8.1 7.4-10.4 [place] 367262-06-24 08:00:00 Test Item Value Reference Range Interpretation Comments Segs (test code = Segs) 75.8 45.0-75.0 [place] 367262-06-24 08:00:00 Test Item Value Reference Range Interpretation Comments Lymphocytes (test code = Lymphocytes) 16.9 20.0-40.0 [place] [address]-06-24 08:00:00 Test Item Value Reference Range Interpretation Comments Monocytes (test code = Monocytes) 7.0 2.0-12.0 [place] 367262-06-24 08:00:00 Test Item Value Reference Range Interpretation Comments Eosinophils (test code = 0.2 See_Comment [A utomated message] The Eosinophils) system which ge nerated this result tra nsmitted reference range : <=4.0. The reference r parag was not used to int erpret this result as normal/abnormal . [place] 367262-06-24 08:00:00 Test Item Value Reference Range Interpretation Comments Basophils (test code = 0.1 See_Comment [Aut omated message] The Basophils) system which ge nerated this result tra nsmitted reference range : <=1.0. The reference r parag was not used to int erpret this result as normal/abnormal . [place] 367262-06-24 08:00:00 Test Item Value Reference Range Interpretation Comments Neutrophils # (test code = Neutrophils 6.5 1.5-8.1 #) [place] 367262-06-24 08:00:00 Test Item Value Reference Range Interpretation Comments Lymphocytes # (test code = Lymphocytes 1.5 1.0-5.5 #) [place] 367262-06-24 08:00:00 Test Item Value Reference Range Interpretation Comments Monocytes # (test code 0.6 See_Comment [Aut omated message] The = Monocytes #) system which generated this result tra nsmitted reference range : <=0.8. The reference r parag was not used to int erpret this result as normal/abnormal . [facility]ik[facility]BLCCBFYIMU6241-60-58 14:35:00 Test Item Value Reference Range Interpretation Comments Coronavirus (COVID-19) Not Detected (11/30/21 KAREN (test code = 9:35 AM) Coronavirus (COVID-19) KAREN) [place] 041562-06-23 14:30:00 Test Item Value Reference Range Interpretation Comments Glucose Lvl (test code = Glucose Lvl) 184 70-99 [place] 041562-06-23 14:30:00 Test Item Value Reference Range Interpretation Comments BUN (test code = BUN) 12 7- [place] 041562-06-23 14:30:00 Test Item Value Reference Range Interpretation Comments Creatinine Lvl (test code = Creatinine 0.78 0.50-1.40 Lvl) [place] 041562-06-23 14:30:00 Test Item Value Reference Range Interpretation Comments Sodium Lvl (test code = Sodium Lvl) 142 135-145 [place] 041562-06-23 14:30:00 Test Item Value Reference Range Interpretation Comments Potassium Lvl (test code = Potassium 4.0 3.5-5.1 Lvl) [place] 041562-06-23 14:30:00 Test Item Value Reference Range Interpretation Comments Chloride Lvl (test code = Chloride Lvl) 107 95-109 [place] 041562-06-23 14:30:00 Test Item Value Reference Range Interpretation Comments CO2 (test code = CO2) 29 24-32 [place] 041562-06-23 14:30:00 Test Item Value Reference Range Interpretation Comments Calcium Lvl (test code = Calcium Lvl) 8.9 8.5-10.5 [place] 041562-06-23 14:30:00 Test Item Value Reference Range Interpretation Comments AGAP (test code = AGAP) 10.0 10.0-20.0 [place] 041562-06-23 14:30:00 Test Item Value Reference Range Interpretation Comments eGFR (test code = eGFR) 71 [place] 041562-06-23 14:30:00 Test Item Value Reference Range Interpretation Comments Total Protein (test code = Total 6.4 6.4-8.4 Protein) [place] 041562-06-23 14:30:00 Test Item Value Reference Range Interpretation Comments Albumin Lvl (test code = Albumin Lvl) 3.2 3.5-5.0 [place] 041562-06-23 14:30:00 Test Item Value Reference Range Interpretation Comments ALANINE AMINOTRANSFERASE 31 See_Comment [A utomated message] (test code = ALANINE The sys tem which AMINOTRANSFERASE) generated this result transmitted ref erence range: <=65. Th e reference range was not used to int erpret this result as normal/abnormal . [facility] [id number] 14:30:00 Test Item Value Reference Range Interpretation Comments AST (test code = AST) 35 See_Comment [Auto mated message] The system which ge nerated this result transmit taylor reference range : <=37. The reference range was not used to interpr et this result as senia l/abnormal. [facility] [id number] 14:30:00 Test Item Value Reference Range Interpretation Comments Alk Phos (test code = Alk Phos) 51 39-136 [place] 041562-06-23 14:30:00 Test Item Value Reference Range Interpretation Comments Bili Total (test code = Bili Total) 0.5 0.2-1.3 [place] [address]-06-23 14:30:00 Test Item Value Reference Range Interpretation Comments Bili Direct (test code 0.1 See_Comment [Aut omated message] The = Bili Direct) system which generated this result tra nsmitted reference range : <=0.3. The reference r parag was not used to int erpret this result as senia l/abnormal. [facility] [id number] 14:30:00 Test Item Value Reference Range Interpretation Comments Bili Indirect (test 0.4 See_Comment [Automa taylor message] The code = Bili Indirect) system which generated this result tra nsmitted reference range : <=1.0. The reference r parag was not used to int erpret this result as normal/abnormal . [facility] [id number] 14:30:00 Test Item Value Reference Range Interpretation Comments Globulin (test code = Globulin) 3.2 2.7-4.2 [facility]2022-06-23 14:30:00 Test Item Value Reference Range Interpretation Comments A/G Ratio (test code = A/G Ratio) 1.0 1 0.7-1.6 [facility] CampusGpxcagwRQTAQLKLPT0773-19-47 14:30:00 Test Item Value Reference Range Interpretation Comments WBC X 10x3 (test code = WBC X 10x3) 13.9 3.7-10.4 [facility] CampusAanjddtLVCRWAFPIG8312-06-82 14:30:00 Test Item Value Reference Range Interpretation Comments RBC X 10x6 (test code = RBC X 10x6) 4.14 4.20-5.40 [facility] CampusMiioankZRGLMZMIRY3608-82-89 14:30:00 Test Item Value Reference Range Interpretation Comments Hgb (test code = Hgb) 12.2 12.0-16.0 [facility] CampusQkhtlupYVDFKEXLGQ5146-61-60 14:30:00 Test Item Value Reference Range Interpretation Comments Hct (test code = Hct) 37.5 36.0-48.0 [facility] CampusQrnjbcjMKMFNXPJFW8586-48-12 14:30:00 Test Item Value Reference Range Interpretation Comments MCV (test code = MCV) 90.5 80.0-98.0 [facility] CampusKhoonvcBYTRYKYPOM9643-94-77 14:30:00 Test Item Value Reference Range Interpretation Comments MCH (test code = MCH) 29.4 pg 27.0-31.0 [facility] CampusAjjmroqXHDUGXQNIW5110-01-74 14:30:00 Test Item Value Reference Range Interpretation Comments MCHC (test code = MCHC) 32.5 32.0-36.0 [facility] CampusLddeqgjCKELPRKNMD7127-19-75 14:30:00 Test Item Value Reference Range Interpretation Comments RDW (test code = RDW) 13.3 11.5-14.5 [place] 367262-06-23 14:30:00 Test Item Value Reference Range Interpretation Comments Platelet (test code = Platelet) 158 133-450 [facility] CampusAljnmcfUMPPBNVTIF1336-59-96 14:30:00 Test Item Value Reference Range Interpretation Comments MPV (test code = MPV) 7.7 7.4-10.4 [facility] CampusOcyaueiTFWZHYCRPJ7542-09-87 14:30:00 Test Item Value Reference Range Interpretation Comments PT (test code = PT) 13.5 s 12.0-14.7 [facility] CampusQiujuaeAXNYPEIMGF8330-08-47 14:30:00 Test Item Value Reference Range Interpretation Comments INR (test code = INR) 1.04 1 0.85-1.17 [facility] CampusWhxxnxaIAWWOUGXDZ0987-91-88 14:30:00 Test Item Value Reference Range Interpretation Comments PTT (test code = PTT) 22.7 s 22.9-35.8 [facility] CampusEujpmjiBCORZCETDQ4821-72-86 14:30:00 Test Item Value Reference Range Interpretation Comments Segs (test code = Segs) 90.4 45.0-75.0 [facility] CampusTqzgipcBEWUHVNSAO2492-51-00 14:30:00 Test Item Value Reference Range Interpretation Comments Lymphocytes (test code = Lymphocytes) 5.2 20.0-40.0 [facility] CampusGgwmqkrPUROZHYTQY9409-58-92 14:30:00 Test Item Value Reference Range Interpretation Comments Monocytes (test code = Monocytes) 4.3 2.0-12.0 [facility] CampusTwdxvtgWXLEVOEZQV8737-69-03 14:30:00 Test Item Value Reference Range Interpretation Comments Basophils (test code = 0.1 See_Comment [Aut omated message] The Basophils) system which ge nerated this result tra nsmitted reference range : <=1.0. The reference r parag was not used to int erpret this result as normal/abnormal . [facility] CampusQhmnakzCADCCWPYEX6460-38-70 14:30:00 Test Item Value Reference Range Interpretation Comments Neutrophils # (test code = Neutrophils 12.6 1.5-8.1 #) [facility] CampusTmxjxiiHCCEEWZDWL6734-24-15 14:30:00 Test Item Value Reference Range Interpretation Comments Lymphocytes # (test code = Lymphocytes 0.7 1.0-5.5 #) [facility] CampusDeiirbfVCXLWDYUCU6752-07-57 14:30:00 Test Item Value Reference Range Interpretation Comments Monocytes # (test code 0.6 See_Comment [Aut omated message] The = Monocytes #) system which generated this result tra nsmitted reference range : <=0.8. The reference r parag was not used to int erpret this result as normal/abnormal . [facility]2022-06-23 14:30:00 Test Item Value Reference Range Interpretation Comments UA Color (test code = Light Yellow UA Color) *NA*(11/30/21 9:30 AM) [facility] [id number] 14:30:00 Test Item Value Reference Range Interpretation Comments UA Turbidity (test code = Clear (11/30/21 9:30 UA Turbidity) AM) [facility] AND [id number] 14:30:00 Test Item Value Reference Range Interpretation Comments UA Spec Grav (test code = UA Spec 1.046 1 Grav) [facility] [id number] 14:30:00 Test Item Value Reference Range Interpretation Comments UA pH (test code = UA pH) 6.0 1 5.0-8.0 [facility] AND [id number] 14:30:00 Test Item Value Reference Range Interpretation Comments UA Protein (test code = UA Negative mg/dL Protein) [facility] [id number] 14:30:00 Test Item Value Reference Range Interpretation Comments UA Glucose (test code = UA Negative mg/dL Glucose) [facility] [id number] 14:30:00 Test Item Value Reference Range Interpretation Comments UA Ketones (test code = UA Ketones) 20 mg/dL [facility] [id number] 14:30:00 Test Item Value Reference Range Interpretation Comments UA Bili (test code = Negative *NA*(11/30/21 UA Bili) 9:30 AM) [facility] AND [id number] 14:30:00 Test Item Value Reference Range Interpretation Comments UA Blood (test code = Negative (11/30/21 9:30 UA Blood) AM) [facility] [id number] 14:30:00 Test Item Value Reference Range Interpretation Comments UA Urobilinogen (test code = UA no gt 0.1-1.0 Urobilinogen) [facility] AND [id number] 14:30:00 Test Item Value Reference Range Interpretation Comments UA Nitrite (test code Negative (11/30/21 9:30 = UA Nitrite) AM) [facility] [id number] 14:30:00 Test Item Value Reference Range Interpretation Comments UA Leuk Est (test Negative (11/30/21 9:30 code = UA Leuk Est) AM) [facility] AND [id number] 14:30:00 Test Item Value Reference Range Interpretation Comments UA WBC (test code = 1 See_Comment [Automa taylor message] The UA WBC) system which ge nerated this result transmit taylor reference range : <=5. The reference range was not used to interpr et this result as senia l/abnormal. [facility] AND [id number] 14:30:00 Test Item Value Reference Range Interpretation Comments UA RBC (test code = 7 See_Comment [Automa taylor message] The UA RBC) system which ge nerated this result transmit taylor reference range : <=2. The reference range was not used to interpr et this result as senia l/abnormal. [facility] AND [id number] 14:30:00 Test Item Value Reference Range Interpretation Comments UA Bacteria (test code = UA Occasional /HPF Bacteria) [facility] AND [id number] 14:30:00 Test Item Value Reference Range Interpretation Comments UA Mucus (test code = UA Mucus) Few /LPF [facility] [id number] 14:30:00 Test Item Value Reference Range Interpretation Comments UA Sq Epi (test code = UA Sq Epi) None Seen [facility] and Screen - ONCE [id number] 11:08:52 Test Item Value Reference Range Interpretation Comments ABO & RH (test AB Positive Performed at [facility] code = 20) Laboratory Serv [facility] [address] [place], [place] [address]Toll Free: [phone] A No. [id number] IAT (test code = Negative Performed a t [facility] 1185) Laboratory Serv [facility] [address] [place], [place] [id number] Free: [phone] A No. [id number] [facility]. METABOLIC PANEL ([id number])2021-11-30 10:54:07 Test Item Value Reference Range Interpretation Comments NA (test code = 139 mmol/L 135-145 [id number]) K (test code = 4.1 mmol/L 3.5-5.0 7584823969) CL (test code = 106 mmol/L 98-108 6273181911) CO2 TOTAL (test code = 27 mmol/L 23-31 4826396263) AGAP (test code = 2-16 3368082363) BUN (test code = 14 mg/dL 7-23 5247918822) GLUCOSE (test code = 168 mg/dL 70-110 H 8590417528) CREATININE (test code = 0.64 mg/dL 0.50-1.04 4558782384) TOTAL BILI (test code = 0.7 mg/dL 0.1-1.1 7057166099) CALCIUM (test code = 9.1 mg/dL 8.6-10.6 5984235732) T PROTEIN (test code = 5.9 g/dL 6.3-8.2 L 0322635090) ALBUMIN (test code = 3.6 g/dL 3.5-5.0 3235396384) ALK PHOS (test code = 49 U/L 34-122 3703541635) ALTv (test code = 21 U/L 5-35 1742-6) AST(SGOT) (test code = 43 U/L 13-40 H 7672552046) eGFR (test code = mL/min/1.73m2 6138251815) AINSLEY (test code = AINSLEY) Association of Glomerular Filtration Rate (GFR) and Staging of Kidney Disease* + --+ --+ ------+| GFR (mL/min/1.73 m2) ?| With Kidney Damage ?| ?Without Kidney Damage+ --------+ --------+ +| ?>90 ?| ?Stage one ?| ? Normal ?+ ---+ ---+ -------+| ?60-89 ?| ?Stage two ?| ? Decreased GFR ? + --+ --+ ------+| ?30-59 ?| ?Stage three ?| ? Stage three ? + --+ --+ ------+| ?15-29 ?| ?Stage four ? | ? Stage four ?+ ---+ ---+ -------+| ?<15 (or dialysis) ? ?| ?Stage five ? | ? Stage five ?+ ---+ ---+ -------+ *Each stage assumes the associated GFR level has been in effect for at least three months. ?Stages 1 to 5, with or without kidney disease, indicate chronic kidney disease. Notes: Determination of stages one and two (with eGFR >59mL/min/1.73 m2) requires estimation of kidney damage for at least three months as defined by structural or functional abnormalities of the kidney, manifested by either:Pathological abnormalities or Markers of kidney damage (including abnormalities in the composition of the blood or urine or abnormalities in imaging tests). Lab Interpretation Abnormal (test code = 80107-0) [facility] WITH [id number] 10:41:25 Test Item Value Reference Range Interpretation Comments WBC (test code = See_Comment [Automated 6690-2) message] The sy stem which generated this result transmitted reference range : 4.30 - 11.10 10*3/?L. The reference range was not used to interpret this result as normal/abnormal . RBC (test code = See_Comment [Automated 789-8) message] The sy stem which generated this result transmitted reference range : 3.93 - 5.25 10*6/?L. The reference range was not used to interpret this result as normal/abnormal . HGB (test code = 12.6 g/dL 11.6-15.0 718-7) HCT (test code = 38.7 % 35.7-45.2 4544-3) MCV (test code = 90.6 fL 80.6-95.5 787-2) MCH (test code = 29.5 pg 25.9-32.8 785-6) MCHC (test code = 32.6 g/dL 31.6-35.1 786-4) RDW-SD (test code = 42.0 fL 39.0-49.9 89638-2) RDW-CV (test code = 12.8 % 12.0-15.5 788-0) PLT (test code = See_Comment L [Automated 777-3) message] The sy stem which generated this result transmitted reference range : 166 - 358 10*3/ ?L. The reference r parag was not used to interpret this result as normal/abnormal . MPV (test code = 10.1 fL 9.5-12.9 40030-2) NRBC/100 WBC (test See_Comment [Automat ed code = [id number]) message] The system which generated this result transmitted reference range : 0.0 - 10.0 /100 WBCs. The refer ence range was not u sed to interpret th is result as normal/abnormal . NRBC x10^3 (test code <0.01 See_Comment [Auto mated = [id number]) message] The s ystem which generated this result transmitted reference range : 10*3/?L. The reference range was not used to interpret this result as normal/abnormal . GRAN MAT (NEUT) % 58.4 % (test code = 770-8) IMM GRAN % (test code 1.50 % = 5180606816) LYMPH % (test code = 33.6 % 736-9) MONO % (test code = 4.9 % 5905-5) EOS % (test code = 1.3 % 713-8) BASO % (test code = 0.3 % 706-2) GRAN MAT x10^3(ANC) 4.38 10*3/uL 1.88-7.09 (test code = 7793749893) IMM GRAN x10^3 (test 0.11 10*3/uL 0.00-0.06 H code = 5173107569) LYMPH x10^3 (test code 2.52 10*3/uL 1.32-3.29 = 731-0) MONO x10^3 (test code 0.37 10*3/uL 0.33-0.92 = 742-7) EOS x10^3 (test code = 0.10 10*3/uL 0.03-0.39 711-2) BASO x10^3 (test code <0.03 0.01-0.07 = 704-7) Lab Interpretation Abnormal (test code = 98979-3) [facility] [id number] 12:14:34Surgical Pathology Report Case: [id number] Authorizing Provider: Tanya Anglin MD Collected: 04/09/2021 12:36 PM Ordering Location: [facility] Received: 04/10/2021 09:21 AM PERIOPERATIVE SERVICES Pathologist: Nicolle Lopez MD Specimen: Hernia, HIATAL HERNIA SAC A. HERNIA SAC, HIATAL HERNIA SAC, EXCISION AND REPAIR: - FIBROMEMBRANOUS ADIPOSE TISSUE CONSISTENT WITH HERNIA SAC - NEGATIVE FOR MALIGNANCY Signing Pathologist Direct Phone Line: [phone] signed by Nicolle Lopez MD on 04/12/2021 at 12:14 [id number] obstructionA. HerniaA. Received fresh labeled with the patient's name, medical record number and "hernia" is a 5.0 x 3.4 x 0.6 cm saccular portion of pinkred fibromembranous tissue with minimal attached yellow lobulated adipose tissue. The specimen is serially section and no masses or lesions are identified. Physician Practice Administrator sections are submitted in A1. Dori Nuno, MJPPerformed.RAD, CHEST, 1 VIEW, NON [id number] 08:20:00Reason for exam:->s/p hiatal hernia repairShould this be performed at the bedside?->[facility] : 1940 Sex: FFINALREPORT CLINICAL HISTORY: s/p hiatal hernia repair TECHNIQUE: 1 view of the chest. COMPARISON: 04/10/2021 IMPRESSION: The right jugular line is unchanged. A small right pneumothorax is again seen. Mild bilateral lung opacities are similar. A small left pleural effusion again seen. The cardiomediastinal silhouette is magnified by technique. Signed: Savannah Em MDReport Verified Date/Time: 04/11/2021 08:20:45 Reading Location: [facility] Radiology Reading Room [id number] 06:58:45 Test Item Value Reference Range Interpretation Comments MAGNESIUM (BEAKER) (test code = 1.9 mg/dL 1.6-2.6 627) Operations Officer [employer] ID - SHELLY MBASIC METABOLIC [id number] 06:58:44 Test Item Value Reference Range Interpretation Comments SODIUM (BEAKER) 139 meq/L 136-145 (test code = 381) POTASSIUM (BEAKER) 3.4 meq/L 3.5-5.1 L (test code = 379) CHLORIDE (BEAKER) 106 meq/L 98-107 (test code = 382) CO2 (BEAKER) (test 24 meq/L 22-29 code = 355) ANION GAP (BEAKER) 12 meq/L (test code = 345) BLOOD UREA NITROGEN 8 mg/dL 7-21 (BEAKER) (test code = 354) CREATININE (BEAKER) 0.64 mg/dL 0.57-1.25 (test code = 358) BUN/CREATININE RATIO 12.5 (BEAKER) (test code = 1800) GLUCOSE RANDOM 98 mg/dL 70-105 (BEAKER) (test code = 652) CALCIUM (BEAKER) 8.7 mg/dL 8.4-10.2 (test code = 697) EGFR (BEAKER) (test 89 mL/min/1.73 ESTIMA TAYLOR GFR IS code = 1092) sq m NOT ACCURATE CREATININE CLEARANCE IN PREDICTING GLOMERULAR FILTRATION RATE . ESTIMATED GFR I S NOT APPLICABLE FOR DIALYSIS PATIEN TS. Operations Officer [employer] ID - SHELLY MCBC W/PLT COUNT & AUTO [id number] 05:20:39 Test Item Value Reference Range Interpretation Comments WHITE BLOOD CELL COUNT (BEAKER) 9.9 K/ L 3.5-10.5 (test code = 775) RED BLOOD CELL COUNT (BEAKER) 4.25 M/ L 3.93-5.22 (test code = 761) HEMOGLOBIN (BEAKER) (test code = 12.3 GM/DL 11.2-15.7 410) HEMATOCRIT (BEAKER) (test code = 38.8 % 34.1-44.9 411) MEAN CORPUSCULAR VOLUME (BEAKER) 91.3 fL 79.4-94.8 (test code = 753) MEAN CORPUSCULAR HEMOGLOBIN 28.9 pg 25.6-32.2 (BEAKER) (test code = 751) MEAN CORPUSCULAR HEMOGLOBIN CONC 31.7 GM/DL 32.2-35.5 L (BEAKER) (test code = 752) RED CELL DISTRIBUTION WIDTH 13.5 % 11.7-14.4 (BEAKER) (test code = 412) PLATELET COUNT (BEAKER) (test 165 K/CU MM 150-450 code = 756) MEAN PLATELET VOLUME (BEAKER) 9.4 fL 9.4-12.3 (test code = 754) NUCLEATED RED BLOOD CELLS 0 /100 WBC 0-0 (BEAKER) (test code = 413) NEUTROPHILS RELATIVE PERCENT 70 % (BEAKER) (test code = 429) LYMPHOCYTES RELATIVE PERCENT 23 % (BEAKER) (test code = 430) MONOCYTES RELATIVE PERCENT 6 % (BEAKER) (test code = 431) EOSINOPHILS RELATIVE PERCENT 1 % (BEAKER) (test code = 432) BASOPHILS RELATIVE PERCENT 0 % (BEAKER) (test code = 437) NEUTROPHILS ABSOLUTE COUNT 6.94 K/ L 1.56-6.13 H (BEAKER) (test code = 670) LYMPHOCYTES ABSOLUTE COUNT 2.23 K/ L 1.18-3.74 (BEAKER) (test code = 414) MONOCYTES ABSOLUTE COUNT (BEAKER) 0.56 K/ L 0.24-0.36 H (test code = 415) EOSINOPHILS ABSOLUTE COUNT 0.12 K/ L 0.04-0.36 (BEAKER) (test code = 416) BASOPHILS ABSOLUTE COUNT (BEAKER) 0.02 K/ L 0.01-0.08 (test code = 417) IMMATURE GRANULOCYTES-RELATIVE 1 % 0-1 PERCENT (BEAKER) (test code = 2801) RAD, CHEST, 1 VIEW, NON [id number] 16:06:00Reason for exam:->pigtail removalCH[facility] : 1940 Sex: FFINALREPORT CLINICAL HISTORY: pigtail removal TECHNIQUE: 1 view of the chest. COMPARISON: 04/10/2021 IMPRESSION: The NGT and bilateral pigtail catheters have been removed. A right jugular line is again seen. There is a new small right apical pneumothorax. There is no definite left-sidedpneumothorax. Pulmonary vascular congestion is again seen with left lung base consolidation and incre ased right lower lung atelectasis. Small bilateral pleural effusions are again noted. The cardiomediastinal silhouette is magnified by technique. Signed: Savannah Em Verified Date/Time: 04/10/2021 16:06:42 Reading Location: [facility] Radiology Reading Room [place], [id number] 15:39:00Reason for exam:- >s/p hiatal hernia repar, gastropexy [facility] : 1940 Sex: FFINAL REPORT Gastrografin esophagogram Clinical History: s/p hiatal hernia repair, gastropexy Discussion: Gastrografin is given to the patient to drink, without difficulties. The esophageal motility and caliber is normal. There is smooth narrowing of the GE junction. No contrast extravasation. Fluoro time: 0.73 minutes Number of images obtained: 6 Signed: Samuel Diaz Verified Date/Time: 04/10/2021 15:39:12 Reading Location: [facility] [id number] Ortho Consult Reading Room Electronicallysigned by: SAMUEL DIAZ M.D. on 04/10/2021 03:39 PMRAD, CHEST, 1 VIEW, NON [id number] 07:56:00Reason for exam:->s/p hiatal hernia repairShould this be performed at the bedside?->Yes [facility] : 1940 Sex: FFINALREPORT CLINICAL HISTORY: s/p hiatal hernia repair TECHNIQUE: 1 view of the chest. COMPARISON: 04/09/2021 IMPRESSION: The supporting lines and tubes are similar appearing. There is no pneumothorax. Mild bilateral airspace opacities appear decreased. Small bilateral pleural effusions are again noted. The cardiomediastinal silhouette is magnified by technique. Signed: Savannah Em Verified Date/Time: 04/10/2021 07:56:15 Reading Location: [facility] Radiology Reading Room CBC W/PLT COUNT & AUTO [id number] 04:23:21 Test Item Value Reference Range Interpretation Comments WHITE BLOOD CELL COUNT (BEAKER) 13.4 K/ L 3.5-10.5 H (test code = 775) RED BLOOD CELL COUNT (BEAKER) 4.48 M/ L 3.93-5.22 (test code = 761) HEMOGLOBIN (BEAKER) (test code = 12.9 GM/DL 11.2-15.7 410) HEMATOCRIT (BEAKER) (test code = 41.7 % 34.1-44.9 411) MEAN CORPUSCULAR VOLUME (BEAKER) 93.1 fL 79.4-94.8 (test code = 753) MEAN CORPUSCULAR HEMOGLOBIN 28.8 pg 25.6-32.2 (BEAKER) (test code = 751) MEAN CORPUSCULAR HEMOGLOBIN CONC 30.9 GM/DL 32.2-35.5 L (BEAKER) (test code = 752) RED CELL DISTRIBUTION WIDTH 13.2 % 11.7-14.4 (BEAKER) (test code = 412) PLATELET COUNT (BEAKER) (test 193 K/CU MM 150-450 code = 756) MEAN PLATELET VOLUME (BEAKER) 9.6 fL 9.4-12.3 (test code = 754) NUCLEATED RED BLOOD CELLS 0 /100 WBC 0-0 (BEAKER) (test code = 413) NEUTROPHILS RELATIVE PERCENT 88 % (BEAKER) (test code = 429) LYMPHOCYTES RELATIVE PERCENT 7 % (BEAKER) (test code = 430) MONOCYTES RELATIVE PERCENT 5 % (BEAKER) (test code = 431) EOSINOPHILS RELATIVE PERCENT 0 % (BEAKER) (test code = 432) BASOPHILS RELATIVE PERCENT 0 % (BEAKER) (test code = 437) NEUTROPHILS ABSOLUTE COUNT 11.83 K/ L 1.56-6.13 H (BEAKER) (test code = 670) LYMPHOCYTES ABSOLUTE COUNT 0.89 K/ L 1.18-3.74 L (BEAKER) (test code = 414) MONOCYTES ABSOLUTE COUNT (BEAKER) 0.64 K/ L 0.24-0.36 H (test code = 415) EOSINOPHILS ABSOLUTE COUNT 0.00 K/ L 0.04-0.36 L (BEAKER) (test code = 416) BASOPHILS ABSOLUTE COUNT (BEAKER) 0.01 K/ L 0.01-0.08 (test code = 417) IMMATURE GRANULOCYTES-RELATIVE 0 % 0-1 PERCENT (BEAKER) (test code = 2801) BASIC METABOLIC [id number] 04:12:24 Test Item Value Reference Range Interpretation Comments SODIUM (BEAKER) 140 meq/L 136-145 (test code = 381) POTASSIUM (BEAKER) 4.3 meq/L 3.5-5.1 (test code = 379) CHLORIDE (BEAKER) 107 meq/L 98-107 (test code = 382) CO2 (BEAKER) (test 24 meq/L 22-29 code = 355) BLOOD UREA NITROGEN 8 mg/dL 7-21 (BEAKER) (test code = 354) CREATININE (BEAKER) 0.69 mg/dL 0.57-1.25 (test code = 358) GLUCOSE RANDOM 138 mg/dL 70-105 H (BEAKER) (test code = 652) CALCIUM (BEAKER) 8.9 mg/dL 8.4-10.2 (test code = 697) EGFR (BEAKER) (test 82 mL/min/1.73 ESTIMA TAYLOR GFR IS code = 1092) sq m NOT ACCURATE CREATININE CLEARANCE IN PREDICTING GLOMERULAR FILTRATION RATE . ESTIMATED GFR I S NOT APPLICABLE FOR DIALYSIS PATIEN TS. Operations Officer [employer] ID - ROGER [id number] 04:12:24 Test Item Value Reference Range Interpretation Comments MAGNESIUM (BEAKER) (test code = 2.0 mg/dL 1.6-2.6 627) Operations Officer [employer] ID - ROGER WPOCT-GLUCOSE [id number] 02:23:48 Test Item Value Reference Range Interpretation Comments POC-GLUCOSE METER 102 mg/dL 70-110 : TESTED A T [facility] 6720 (BEAPRIL) (test code = HAYLEE [address], 1538) [address]: Operations Officer Afloat/Techni maria a ID = [id number] for HU NTER, HIWITHA RAD, CHEST, 1 VIEW, NON [id number] 18:05:00Reason for exam:->s/p hiatal hernia repair and gastropexy, chest tubes bilateral. evaluate for pne umothoraxShould this be performed at the bedside?->Yes [facility] : 1940 Sex: FFINALREPORT TECHNIQUE: One view of the chest. INDICATION: 80-year-old woman status post hiatal hernia repair and gastropexy. COMPARISON: Chest radiograph from 10 hours prior. FINDINGS: LINES/TUBES/DEVICES: Bilateral chest tubes in place. Incompletely visualized nasogastric/orogastric tube courses over the expected region of the distal stomach. LUNGS: Decreased aeration of the lungs with bibasilar airspace opacities and apparent pulmonary vascular prominence. PLEURA: No pneumothorax or significant pleural effusion. HEART AND MEDIASTINUM: Cardiomediastinal silhouette is unchanged. Atherosclerotic calcifications in the thoracic aorta. BONES AND SOFT TISSUES: No acute osseous abnormality. Mild subcutaneous emphysema in the left chest wall. IMPRESSION:Apparent pulmonary vascular prominence may be due to low lung volumes, however vascular congestion cannot be excluded. Bibasilar airspace opacities likely represent atelectasis, however superimposed aspiration cannot be excluded. Signed: Abdias Almeida MDRepfulton state hospital Verified Date/Time: 04/09/2021 18:05:11 Reading Location: [address] Transitional Reading Room POCT-GLUCOSE [id number] 17:06:14 Test Item Value Reference Range Interpretation Comments POC-GLUCOSE METER 186 mg/dL 70-110 H : TESTED A T [facility] [address] (BEAKER) (test code = HAYLEE Mattson [facility], 1538) [address]: Operations Officer Afloat/Techni maria a ID = [id number] for [place] [facility] COMPREHENSIVE METABOLIC [id number] 05:24:25 Test Item Value Reference Range Interpretation Comments TOTAL PROTEIN 6.8 gm/dL 6.0-8.3 (BEAKER) (test code = 770) ALBUMIN (BEAKER) 3.8 g/dL 3.5-5.0 (test code = 1145) ALKALINE PHOSPHATASE 50 U/L 40-150 (BEAKER) (test code = 346) BILIRUBIN TOTAL 0.5 mg/dL 0.2-1.2 (BEAKER) (test code = 377) SODIUM (BEAKER) (test 140 meq/L 136-145 code = 381) POTASSIUM (BEAKER) 4.6 meq/L 3.5-5.1 (test code = 379) CHLORIDE (BEAKER) 105 meq/L 98-107 (test code = 382) CO2 (BEAKER) (test 28 meq/L 22-29 code = 355) BLOOD UREA NITROGEN 10 mg/dL 7-21 (BEAKER) (test code = 354) CREATININE (BEAKER) 0.83 mg/dL 0.57-1.25 (test code = 358) GLUCOSE RANDOM 174 mg/dL 70-105 H (BEAKER) (test code = 652) CALCIUM (BEAKER) 9.2 mg/dL 8.4-10.2 (test code = 697) AST (SGOT) (BEAKER) 21 U/L 5-34 (test code = 353) ALT (SGPT) (BEAKER) 15 U/L 6-55 (test code = 347) EGFR (BEAKER) (test 66 mL/min/1.73 ESTIMA TAYLOR GFR IS code = 1092) sq m NOT ACCURATE CREATININE CLEARANCE IN PREDICTING GLOMERULAR FILTRATION RATE . ESTIMATED GFR I S NOT APPLICABLE FOR DIALYSIS PATIEN TS. Operations Officer Afloat ID - [id number] 04:53:37 Test Item Value Reference Range Interpretation Comments PARTIAL THROMBOPLASTIN TIME 27.6 seconds 22.5-36.0 (BEAKER) (test code = 760) PROTHROMBIN [id number] 04:52:50 Test Item Value Reference Range Interpretation Comments PROTIME (BEAKER) 14.5 seconds 11.9-14.2 H (test code = 759) INR (BEAKER) (test 1.15 See_Comment [Automat ed message] code = 370) The system [email or web address] generated this result transmitted ref erence range: <=5.90. The reference range was not used to int erpret this result as normal/abnormal . RECOMMENDED COUMADIN/WARFARIN INR THERAPY RANGESSTANDARD DOSE: 2.0 - 3.0 Includes: PROPHYLAXIS for venous thrombosis, systemic embolization; TREATMENT for venous thrombosis and/or pulmonary embolus.HIGH RISK: Target INR is 2.5-3.5 for patients with mechanical heart valves.CBC W/PLT COUNT & AUTO [id number] 04:46:52 Test Item Value Reference Range Interpretation Comments WHITE BLOOD CELL COUNT (BEAKER) 9.8 K/ L 3.5-10.5 (test code = 775) RED BLOOD CELL COUNT (BEAKER) 4.42 M/ L 3.93-5.22 (test code = 761) HEMOGLOBIN (BEAKER) (test code = 12.7 GM/DL 11.2-15.7 410) HEMATOCRIT (BEAKER) (test code = 40.2 % 34.1-44.9 411) MEAN CORPUSCULAR VOLUME (BEAKER) 91.0 fL 79.4-94.8 (test code = 753) MEAN CORPUSCULAR HEMOGLOBIN 28.7 pg 25.6-32.2 (BEAKER) (test code = 751) MEAN CORPUSCULAR HEMOGLOBIN CONC 31.6 GM/DL 32.2-35.5 L (BEAKER) (test code = 752) RED CELL DISTRIBUTION WIDTH 13.2 % 11.7-14.4 (BEAKER) (test code = 412) PLATELET COUNT (BEAKER) (test 196 K/CU MM 150-450 code = 756) MEAN PLATELET VOLUME (BEAKER) 9.6 fL 9.4-12.3 (test code = 754) NUCLEATED RED BLOOD CELLS 0 /100 WBC 0-0 (BEAKER) (test code = 413) NEUTROPHILS RELATIVE PERCENT 86 % (BEAKER) (test code = 429) LYMPHOCYTES RELATIVE PERCENT 10 % (BEAKER) (test code = 430) MONOCYTES RELATIVE PERCENT 3 % (BEAKER) (test code = 431) EOSINOPHILS RELATIVE PERCENT 0 % (BEAKER) (test code = 432) BASOPHILS RELATIVE PERCENT 0 % (BEAKER) (test code = 437) NEUTROPHILS ABSOLUTE COUNT 8.48 K/ L 1.56-6.13 H (BEAKER) (test code = 670) LYMPHOCYTES ABSOLUTE COUNT 0.97 K/ L 1.18-3.74 L (BEAKER) (test code = 414) MONOCYTES ABSOLUTE COUNT (BEAKER) 0.32 K/ L 0.24-0.36 (test code = 415) EOSINOPHILS ABSOLUTE COUNT 0.00 K/ L 0.04-0.36 L (BEAKER) (test code = 416) BASOPHILS ABSOLUTE COUNT (BEAKER) 0.01 K/ L 0.01-0.08 (test code = 417) IMMATURE GRANULOCYTES-RELATIVE 0 % 0-1 PERCENT (BEAKER) (test code = 2801) RAD, CHEST, 1 VIEW, NON [id number] 03:41:00Reason for exam:->Gastric volvulus, establish pre-op CXRShould this be performed at the bedside?->Yes [facility] : 1940 Sex: FFINALREPORT Chest, 1 view. History: Gastric volvulus. Comparison: None available. IMPRESSION: Enteric tube is seen coursing inferiorly with tip overlying the gastric fundus. Stomach bubble overlies the left hemithorax, possibly due to elevation of the left hemidiaphragm versus hiatal hernia incompletely characterized on this examination. Normal bibasilar atelectasis. Cardiac mediastinal silhouette is within normal limits given technique. Atherosclerotic calcifications of the thoracicaorta. No pneumothorax. No acute osseous abnormality. Signed: Tessie Valencia [facility] Verified Date/Time: 04/09/2021 03:41:28 Notes Date/Time Note Provider Source 2021-12-05 EXAM: XR CHEST 1 VIEW [facility] 02:29:00-00:00 DATE: 12/05/2021 3:00 Center INDICATION: - f/u chest tube removal, pleural ef fusions COMPARISON: 12/04/2021 TECHNIQUE: AP chest IMPRESSION: Stable enlarged cardiomedias tinal silhouette. Calcifications in the aortic knob. Senescent calcifications of the tracheobronchial tree. Stable left retrocardiac opacity, likely left pleural effusion wit h or without superimposed at electasis or consolidation. Small left pleural effusion. Tiny residual right apical pneumothorax is unchanged. Minimal subcutaneous emphysema in the right chest wall. Stable osseous structures, including numerous displaced right-sided rib fractures. 2021-12-04 EXAM: XR CHEST 1 VIEW [facility] 16:12:00-00:00 DATE: 12/04/2021 13:51 Center INDICATION: - right chest tube removal COMPARISON: 12/04/2021 at 1:00 AM TECHNIQUE: AP chest IMPRESSION: Right basilar chest tube has been removed. Stable enlarged cardiomediastinal silhouette. Calcifications in the aortic knob. Senescent calcifications of the tracheobronchial tree. Stable left retrocardia c opacity, likely left pleur al effusion with or without superimposed atelectasis or consolidation. Small pleural effusion. Tiny residual right apical pneumothorax is unchanged. Minimal subcutaneous emph ysema in the right chest wal l. Stable osseous structures including right rib fractures. 2021-12-04 EXAM: XR CHEST 1 VIEW [facility] 01:00:00-00:00 DATE: 12/04/2021 3:00 Center INDICATION: - right pneumothorax. TECHNIQUE: Chest 1 view FINDINGS: Comparison is made to December 03. Cardiomediastinal silhouette is unchanged. Again seen are numerous displaced right-sided rib fractures with soft tissue swelling and subcutaneous emphysema in the right chest wall. There is a small right hydro pneumothorax with right basilar chest tube in place. Tiny left pleural effusion. The right hemidiaphragm is e levated. There is subsegmental atelectasis in both lung bases. There is a mild peripheral opacity in the right lung base probably due to pulmonary contusion. IMPRESSION: No significant change when compared to yesterday. 2021-12-03 EXAM: XR CHEST 1 VIEW [facility] 01:13:00-00:00 DATE: 12/03/2021 3:00 Center INDICATION: - eval chest tube COMPARISON: 12/02/2021 TECHNIQUE: AP chest IMPRESSION: Right basilar chest tube rem ains in place. Stable enlarged cardiomediastinal silhouette. Calcifications in the aortic knob. Senescent calcifications of the tracheobronchial tree. Stable left retrocardia c opacity, likely left pleur al effusion with or without superimposed atelectasis or consolidation. Small pleural effusion. Tiny residual right apical pneumothorax is unchanged. Minimal subcutaneous emph ysema in the right chest wall. Stable osseous st ructures. 2021-12-02 EXAM: [facility] 13[facility]37[facility]00 DATE: 12/02/2021 12:00 Center INDICATION: - CT to WS COMPARISON: 12/02/2021 TECHNIQUE: AP chest IMPRESSION: Right basilar chest tube rem ains in place. Stable enlarged cardiomediastinal silhouette. Calcifications in the aortic knob. Senescent calcifications of the tracheobronchial tree. Stable left retrocardia c opacity, likely left pleur al effusion with or without superimposed atelectasis or consolidation. Small pleural effusion. Tiny residual right apical pneumothorax is unchanged. Minimal subcutaneous emph ysema in the right chest wall. Stable osseous st ructures. 2021-12-02 EXAM: XR CHEST 1 [facility]IEW [facility]00:00 DATE: 12/02/2021 3:00 Center INDICATION: - CT to suction COMPARISON: 12/01/2021 TECHNIQUE: AP chest IMPRESSION: Right basilar chest tube rem ains in place. Stable enlarged cardiomediastinal silhouette. Calcifications in the aortic knob. Senescent calcifications of the tracheobronchial tree. Stable left retrocardia c opacity, likely left pleur al effusion with or without superimposed atelectasis or consolidation. Small pleural effusion. Tiny residual right apical pneumothorax is unchanged. Improved subcutaneous emp hysema in the right chest wall. Stable osseous s tructures. 2021-12-01 EXAM: XR CHEST 1 VIEW [facility] 00:25:00-00:00 DATE: 12/01/2021 3:00 Center INDICATION: - eval chest tube COMPARISON: No prior chest x-ray, chest CT study dated 11/30/2021 TECHNIQUE: AP chest, portable radiograph IMPRESSION: 1. Right-sided chest tube ti p superimposing over the lower mediastinum. The tip of the tube appears in the anterior cardiophrenic sinus on today's CT study. 2. Cardiomediastinal silhoue tte is enlarged. Vascular calcifications are seen in the aortic arch. 3. Right-sided small hemotho rax pneumothorax is noted. Elevation of the right hemidiaphragm. Small left-sided pleural effusion. Prominent interstitial markings may suggest interstitial edema. 4. Multiple right-sided disp laced rib fractures are better evaluated on admission CT study. Degenerative changes in the thoracic spine. Right chest wall soft tissue emphysema is noted. 2021-11-30 EXAM: CT BRAIN WITHOUT CONTRAST [facility] 14:14:12-00:00 DATE: 11/30/2021 14:00 Center INDICATION: - concern for minimal bleed in sylvi an fissure v artifact COMPARISON: CT brain 11/30/2021 TECHNIQUE: Routine axial char ges of the brain were obtained without contrast.Coronal and sagittal reformatted images. IV contrast: None. FINDINGS: Previously demonstrated poss ible subtle hyperdensity in the posterior aspect of the left sylvian fissure slightly less conspicuous. No new areas of intracranial hemorrhage or mass effect.. The pérez-white interfaces are preserved. Mild cerebral volume loss wi th compensatory enlargement of ventricles and sulci.The basal cisterns are patent. The orbits, paranasal sinuse s and mastoids are unremarkable. There is no fracture of the skull, skull base, or visible facial bones. IMPRESSION: Previously seen questionable subarachnoid hemorrhage in the left sylvian fissure is decreased in conspicuity. No new hemorrhage or intracranial mass effect. 2021-11-30 EXAM: XR RIGHT FOREARM 2 VIEWS [facility] 10:27:26-00:00 EXAM: XR RIGHT HUMERUS 2 VIEWS C enter DATE: 11/30/2021 9:32 INDICATION: - Fall with laceration COMPARISON: None. TECHNIQUE: 2 views of the forearm, 2 views of th e humerus FINDINGS: Forearm: No acute fracture or malalignment is id entified. Humerus: No acute fracture o r malalignment is identified. Degenerative changes are noted at the right AC joint. Soft tissues: Soft tissue sw elling and laceration is noted at the lateral aspect of the right forearm. IMPRESSION: Soft tissue swelling and lac eration of the right lateral forearm. No acute bone abnormality. 2021-11-30 EXAM: XR RIGHT FOREARM 2 VIEWS [facility] 10:27:26-00:00 EXAM: XR RIGHT HUMERUS 2 VIEWS C enter DATE: 11/30/2021 9:32 INDICATION: - Fall with laceration COMPARISON: None. TECHNIQUE: 2 views of the forearm, 2 views of th e humerus FINDINGS: Forearm: No acute fracture or malalignment is id entified. Humerus: No acute fracture o r malalignment is identified. Degenerative changes are noted at the right AC joint. Soft tissues: Soft tissue sw elling and laceration is noted at the lateral aspect of the right forearm. IMPRESSION: Soft tissue swelling and lac eration of the right lateral forearm. No acute bone abnormality. 2021-11-30 EXAM: CT HEAD WITHOUT CONTRAST [facility] 09:44:28-00:00 DATE: 11/30/2021 9:32 Center INDICATION: 81 years old Fem rosana patient with history ofFall w/ LOC. at OSH. No imaging. NVI w exam limited 2/2 opiate management en route. TECHNIQUE: Multiple axial im ages were obtained through the head from vertex to the skull base. Axial bone algorithm reconstruction images are provided. COMPARISON: None. FINDINGS: Subtle hyperattenuation susp ected along the posterior margins of left sylvian fissure (series 2, image 19) could be partial volume averaging from the adjoining cortex versus small amount of acute blood product. Otherwise, no other abnormal hyperdensity to suggest acute intracranial hemorrhage is identified. The ventricles are normal in size. No parenchymal mass, mass effect or midline shift is present. The gra y-white matter differentiati on is maintained. Punctate hypodensity in the left basal ganglia could represent prominent perivascular space versus age- indeterminate lacunar infarct. Slightly prominent bilateral extra-axial fluid attenuating spaces and frontal convexity, likely related to brain parenchymal volume loss. No internal hyperdense contents are noted The visualized paranasal sin uses are clear. No mastoid effusion is identified. The bony calvarium is intact. IMPRESSION: 1. Artifact versus small acu te extra-axial hemorrhage along the left posterior sylvian fissure. A short-term interval follow-up CT head could help further characterize this finding. 2. Punctate hypodensity with in left basal ganglia may represent prominent perivascular space and/or age indeterminate lacunar infarct. 3. No acute calvarial fracture. The findings of final report were discussed by Josh Silva MD with [place] De Dios 11/30/2021 12:16 hrs. 2021-11-30 ADDENDUM: [facility] 09:44:28-00:00 3-D surface shaded images of the rib cage were obtained on a dedicated workstation. Center These images were added to the exam after a shital hurd report was made. No additional acute findings are identified with in these additional images. Please refer to FINDINGS and IMPRESSION detailed in the original final report. EXAM: CT CHEST WITHOUT CONTRAST EXAM: CT ABDOMEN AND PELVIS WITHOUT CONTRAST DATE: 11/30/2021 9:21 INDICATION: - OSH wo imaging . CT CAP w/ R rib fx 5-12 and T1-T2 concerning for compression fx. R hemothorax w/ chest tube in place.. COMPARISON: None TECHNIQUE: Volumetric CT of the chest, abdomen and pelvis is acquired without contrast. Axial, coronal and sagittal images are provided. DLP: Refer to CT protocol form [place] SECTION: ER FINDINGS: Payroll Manager: Noncontributory. Lines and tubes: None. Lower Neck: Supraclavicular soft tissues are unr emarkable. Thoracic Aorta and Mediastin um: No mediastinal hematoma or thoracic aortic contour abnormality. Normal heart and pericardium. Atherosclerotic septations are noted within the aorta. Lungs, Pleura, Diaphragm: No pulmonary contusions. Bilateral pleural effusions which may be secondary to hemorrhage are noted with superimposed subsegmental atelectasis. Small right pneumothorax with right-sided chest tube is noted. Liver and biliary tree: Normal. No injury. No bi liary abnormality. Gallbladder: Normal. No CT evidence of gallstone s. No injury. Pancreas: Normal. No injury. Spleen: Normal. No injury. Multiple calcified gr anulomas are noted. Adrenals: Normal. No injury. Kidneys and ureters: Normal. No injury. Bladder: There is decompressed. Keith catheter i s partially visualized. Reproductive organs: No injury. Calcifie d fibroid is noted within the uterus.. Gastrointestinal tract: Normal. No bowel injury. Peritoneum and retroperitoneum: No fluid collect ions or free air. Lymph nodes: Normal. Vasculature: No vascular con tour abnormality or aneurysmal dilatation. Scattered calcifications are noted throughout the abdominal aorta. Spine/ Bones: Multiple right -sided rib fractures, primarily at the fifth through 10th ribs. Degenerative changes of the thoracic spine with multilevel osteophyte formation. The vertebral body heights ar e well preserved. Endplate sclerotic changes are primarily noted at T5-T9. Soft tissues: Right lateral chest wall subcutaneous emphysema is present. Right-sided soft tissue contusion/hematomas along the right lateral chest wall. IMPRESSION: 1. Right hemopneumothorax and right-sided chest tube.. 2. Left pulmonary contusion/hemorrhage. 3. Multiple right-sided rib fractures with subcutaneous emphysema and soft tissue contusion/hematomas along the right lateral chest wall. 2021-11-30 EXAM: CT CERVICAL SPINE WITHOUT CONTRAST [facility] 09:44:28-00:00 DATE: 11/30/2021 9:46 Center INDICATION: - Fall w/ scan at [facility] wo abnormality COMPARISON: Is TECHNIQUE: Volumetric CT of the cervical spine is acquired without contrast. Axial, coronal and sagittal images are provided. IV contrast: None. DLP: Refer to CT protocol form [place] SECTION: ER FINDINGS: The spine is imaged from the skull base to the l evel of T1. Payroll Manager: Noncontributory. Bones: No acute fracture or malalignment is identified. Diffuse osteopenia. The vertebral body heights and disc spaces are preserved. Mild to moderate facet arthropathy is noted throughout the cervical spine. Small anterior longitudinal ligament mika ccation is noted at C5. Soft tissues: No soft tissue abnormality is iden tified. IMPRESSION: No acute abnormality.
[2023-01-30 07:29] LABS: Absolute Lymphocytes (CBC) 1.4 K/uL (0.7-4.9); Hematocrit 38.6 % (36.0-45.0); Lymphocytes % 27.7 % (15.3-44.8); MCV 89.1 fL (80-100); MPV 7.1 fL (7.6-11.3); Platelets 183 thou/uL (152-406); RBC Red Blood Cell Count 4.33 M/uL (3.86-4.86)
[2023-01-30] MEDS ORDERED: MORPHINE 4 MG/ML SYR ONE ×2 (07:43→11:45)
[2023-01-30 07:45] LABS: Albumin 2.8 g/dL (3.4-5.0); Bilirubin Total 0.4 mg/dL (0.2-1.0); Potassium 3.8 mEq/L (3.5-5.1); Protein, Total 6.3 g/dL (6.4-8.2)
--- NOTE | 2023-01-30 08:30 | RAD REPORT ---
EXAM DESCRIPTION: CT - Angio Aorta For Dissection - 01/30/2023 8:04 am CLINICAL HISTORY: . Chest and abd pain COMPARISON: None TECHNIQUE: Computed tomography angiography of the chest, abdomen pelvis were obtained. 100 cc Isovue 370 was administered intravenously. Coronal and sagittal reconstruction were performed. MIP 3D reconstruction was performed All CT scans are performed using dose optimization technique as appropriate and may include automated exposure control or mA/KV adjustment according to patient size. FINDINGS: Short-segment intimal flap infrarenal abdominal aorta. No aortic aneurysm The celiac, SMA and LUPILLO are patent . After sclerosis is present. Calcified granuloma right lung. A lung consolidation is not present. A pericardial effusion is not se en. A pleural effusion is not noted. Hiatal hernia repair. A vague 8 millimeter area of enhancement right lobe of the liver without significant change probably benign. Spleen, pancreas,adrenals and kidneys demonstrate no significant abnormality. There no evidence diverticulitis. Subserosal calcified and noncalcified fibroids without significant change. Mild to moderate compression deformity L2 vertebral body has developed since the prior exam. It is es timated to be 25% compression. There is no retropulsion of bone into spinal canal. Moderate amount stool within the colon IMPRESSION: Short-segment intimal flap infrarenal abdominal aorta [id number] compression fracture L2 vertebral body probably is subacute. If clinically indicated further evaluation with MRI could be obtained Moderate amount of stool within the colon
[2023-01-30 08:45] LABS: Specific Gravity 1.019 (1.005-1.030); Urine Bacteria <20 /HPF (<20); Urine Bilirubin NEGATIVE (Negative); Urine Blood Negative (Negative); Urine Clarity Turbid (Clear); Urine Color Colorless (Yellow); Urine Glucose NEGATIVE (Negative); Urine Mucus Slight /HPF (None Seen); Urine Protein NEGATIVE (Negative); Urine RBC <5 /HPF (None Seen); Urine Urobilinogen Normal (Normal)
[2023-01-30] MEDS ORDERED: LABETALOL 20 MG/4ML SYRINGE IV ONE (09:28)
--- NOTE | 2023-01-30 09:55 | EDPHYS ---
Physician Documentation [facility] Name: Anneliese Calabrese Age: 82 yrs Sex: Female : 1940 Arrival Date: 01/30/2023 Time: 06:55 Bed 8 Private MD: ED Physician Gagandeep Tapia HPI: 01/30 07:11 This 82 yrs old Female presents to ER via EMS with complaints of Back Pain. rt 07:11 Patient presents to the ED with back pain radiating to the abdomen for the past week. rt She was prescribed muscle relaxers and gabapentin by her primary which did not improve her symptoms. Pain worsened today prompting her to come to the ED for further evaluation. She has difficulty walking due to the pain. She reports numbness to her hands, sometimes causing her to drop things. Denies other numbness, weakness. Denies other acute complaints at this time, symptoms are severe in severity, no other aggravating or alleviating factors.. Historical: - Allergies: 07:28 No Known Allergies; rs5 - PMHx: 07:28 Hypertensive disorder; rs5 07:19 Broken Ribs; rs5 - PSHx: 07:19 History of chest tube; Abdominal stomach repair; rs5 - Immunization history:: Adult Immunizations up to date. - Social history:: Smoking status: unknown. ROS: 07:11 Constitutional: Negative for fever, chills, and weight loss, Cardiovascular: Negative rt for chest pain, palpitations, and edema, Respiratory: Negative for shortness of breath, cough, wheezing, and pleuritic chest pain, MS/Extremity: Negative for injury and deformity. 07:11 Abdomen/GI: Positive for abdominal pain, Negative for nausea, vomiting, and diarrhea. 07:11 Back: Positive for pain at rest, pain with movement, radiated pain. Exam: 07:11 Constitutional: This is a well developed, well nourished patient who is awake, alert, rt and in no acute distress. Chest/axilla: Normal chest wall appearance and motion. Nontender with no deformity. No lesions are appreciated. Cardiovascular: Regular rate and rhythm with a normal S1 and S2. No gallops, murmurs, or rubs. Normal PMI, no JVD. No pulse deficits. Respiratory: Lungs have equal breath sounds bilaterally, clear to auscultation and percussion. No rales, rhonchi or wheezes noted. No increased work of breathing, no retractions or nasal flaring. Abdomen/GI: Soft, non-tender, with normal bowel sounds. No distension or tympany. No guarding or rebound. No evidence of tenderness throughout. Skin: Warm, dry with normal turgor. Normal color with no rashes, no lesions, and no evidence of cellulitis. MS/ Extremity: Pulses equal, no cyanosis. Neurovascular intact. Full, normal range of motion. Neuro: Awake and alert, GCS 15, oriented to person, place, time, and situation. Cranial nerves II-XII grossly intact. Motor strength 5/5 in all extremities. Sensory grossly intact. Cerebellar exam normal. Normal gait. Psych: Awake, alert, with orientation to person, place and time. Behavior, mood, and affect are within normal limits. 07:30 ECG was reviewed by the Attending Physician. rt Vital Signs: 07:02 BP 155 / 75; Pulse 65; Resp 18; Temp 98.2(O); Pulse Ox 100% ; Weight 87.54 kg; kd3 09:15 BP 154 / 70; Pulse 78; Resp 15; Pulse Ox 97% ; Pain 5/10; hb 09:41 BP 133 / 58; Pulse 72; Resp 14; Pulse Ox 95% on R/A; hb 10:30 BP 133 / 62; Pulse 61; Resp 14; Pulse Ox 94% on R/A; hb 12:00 BP 141 / 60; Pulse 70; Resp 17; Pulse Ox 97% on R/A; hb 09:15 Pain Scale: Adult hb MDM: 07:03 Patient medically screened. rt 09:55 Differential diagnosis: Abdominal Aortic Aneurysm Aortic dissection, fracture, rt mechanical back pain, pyelonephritis. Data reviewed: vital signs, nurses notes, lab test result(s), EKG, radiologic studies. Consideration of Admission/Observation Escalation of care including admission/observation considered. Management of patient was discussed with the following: Class A Regional Drivers: Discussed with CT surgeon at [facility], will accept the patient in transfer. I considered the following discharge prescriptions or medication management in the emergency department Medications were administered in the Emergency Department. See MAR. Independent interpretation of the following test(s) in the Emergency Department CT Scan: My interpretation is Aortic irregularity seen on interpretation of the CT scan images. Care significantly affected by the following chronic conditions: Hypertension. Counseling: I had a detailed discussion with the patient and/or guardian regarding the historical points, exam findings, and any diagnostic results supporting the discharge/admit diagnosis, lab results, radiology results, the need to transfer to another facility, [facility] does not immediately have the required specialist. Response to treatment: the patient's symptoms have mildly improved after treatment. 01/30 07:04 Order name: UAM; Complete Time: 08:50 rt 01/30 07:04 Order name: CBC with Diff; Complete Time: 08:33 rt 01/30 07:04 Order name: CMP; Complete Time: 08:33 rt 01/30 07:11 Order name: Troponin High Sensitivity; Complete Time: 08:33 rt 01/30 08:48 Order name: Urine Culture EDMS 01/30 07:04 Order name: CT Aorta for Dissection; Complete Time: 08:33 rt 01/30 07:11 Order name: EKG; Complete Time: 07:12 rt 01/30 07:11 Order name: EKG - Nurse/Tech; Complete Time: 07:27 rt EC:30 Rate is 61 beats/min. Rhythm is regular, Normal Sinus Rhythm with No ectopy. QRS [place] rt is Normal. WA interval is normal. QRS interval is normal. QT interval is normal. No Q waves. T waves are Normal. No ST changes noted. Interpreted by me. Administered Medications: 07:30 Drug: morphine IVP or IV 4 mg Route: IVP; Infused Over: 4 mins; Site: left antecubital; rs5 07:47 Follow up: No adverse reaction noted rs5 09:20 Drug: Labetalol IV 10 mg Route: IV; Rate: calculated rate; Site: left forearm; hb 12:17 Drug: morphine IVP or IV 4 mg Route: IVP; Infused Over: 4 mins; Site: left antecubital; rs5 Disposition Summary: 01/30/23 09:54 Transfer Ordered Transfer Location: [facility] rt Reason: Higher level of care rt Condition: Fair rt Problem: new rt Symptoms: have improved rt Accepting Physician: Dr. Rodrigues(01/30/23 12:45) hb Diagnosis - Infrarenal abdominal aortic dissection rt - L2 compression fracture rt Forms: - Medication Reconciliation Form rt - SBAR form rt Critical care time excluding procedures: 10:25 Critical care time: Bedside Care: 30 minutes, Consultation: 10 minutes. Total time: 40 rt minutes Signatures: Dispatcher [employer] Pebbles Mcmahon, RN RN hb Jewels Lao, RN RN kd3 Gagandeep Tapia MD MD rt Tim Bill RN RN rs5 Corrections: (The following items were deleted from the chart) 07:48 07:19 PMHx: Punctured Lung; rs5 rs5 07:48 07:19 PMHx: Fall; rs5 rs5 12:45 09:54 Dr. Rodrigues rt hb
--- NOTE | 2023-01-30 09:55 | ER ---
Nurse's Notes [facility] Name: Anneliese Calabrese Age: 82 yrs Sex: Female : 1940 Arrival Date: 01/30/2023 Time: 06:55 Bed 8 Private MD: Diagnosis: Infrarenal abdominal aortic dissection;L2 compression fracture Presentation: 01/30 07:02 Chief complaint: EMS states: Pt has had low back pain for approximately a week. She has kd3 seen her primary and was sent home with gabapentin and a muscle relaxer. This morning the pain was severe at a 10/10 and she took the gabapentin and cyclobenzaprine but it did not help. She had an episode of incontinent bowl this morning. EMS gave 25 of fentanyl and 4 of Zofran in route. pt now states that the pain if 6/10. Ebola Screen: No symptoms or risks identified at this time. Initial Sepsis Screen: Does the patient meet any 2 criteria? No. Patient's initial sepsis screen is negative. Does the patient have a suspected source of infection? No. Patient's initial sepsis screen is negative. Risk Assessment: Do you want to hurt yourself or someone else? Patient reports no desire to harm self or others. Onset of symptoms was January 30, 2023. 07:02 Method Of Arrival: EMS: [facility] kd3 07:02 Acuity: RAMIN 3 kd3 07:02 Coronavirus screen: Client denies travel out of the [place] in the last 14 days. At this rs5 time, the client does not indicate any symptoms associated with coronavirus-19. Triage Assessment: 07:02 General: Appears uncomfortable, Behavior is calm, cooperative. Pain: Complains of pain kd3 in lumbar area, left low back, right low back, right lower quadrant and left lower quadrant. Neuro: Level of Consciousness is awake, alert, obeys commands, Oriented to person, place, time, situation. Cardiovascular: Patient's skin is warm and dry. Respiratory: Airway is patent Trachea midline Respiratory effort is even, unlabored, Respiratory pattern is regular, symmetrical. Musculoskeletal: Circulation, motion, and sensation intact. Historical: - Allergies: 07:28 No Known Allergies; rs5 - PMHx: 07:28 Hypertensive disorder; rs5 07:19 Broken Ribs; rs5 - PSHx: 07:19 History of chest tube; Abdominal stomach repair; rs5 - Immunization history:: Adult Immunizations up to date. - Social history:: Smoking status: unknown. Screenin:06 [facility] ED Fall Risk Assessment (Adult) Score/Fall Risk Level 3 or more points = High hb Risk Oriented to surroundings, Maintained a safe environment, Educated pt \\T\\ family on fall prevention, incl call for assistance when getting out of bed. Abuse screen: Denies threats or abuse. Denies injuries from another. Nutritional screening: No deficits noted. Tuberculosis screening: No symptoms or risk factors identified. Assessment: 07:19 General: Appears in no apparent distress. comfortable, Behavior is calm, cooperative. rs5 Pain: Complains of pain in lower back pain Pain radiates to lower legs bilat Pain currently is 7 out of 10 on a pain scale. Quality of pain is described as aching, radiating, sharp, Pain began one week ago. Neuro: Level of Consciousness is awake, alert, obeys commands, Oriented to person, place, time, situation, Air Hole Driller are equal bilaterally Weakness from waist down, Gait is steady, ambulates with a walker since pain began one week ago. Prior to pain, pt reports ambulating independently. Intact. Cardiovascular: Rhythm is regular. Respiratory: Airway is patent Respiratory effort is even, unlabored, Respiratory pattern is regular, symmetrical, Breath sounds are clear bilaterally. GI: Abdomen is round non-distended, Bowel sounds present X 4 quads. : No signs and/or symptoms were reported regarding the genitourinary system. EENT: No signs and/or symptoms were reported regarding the EENT system. Derm: Skin is pink, warm \\T\\ dry. Musculoskeletal: Range of motion: limited in from waist down Reports weakness in from the waist down pain in lower back since one week ago. Pain is 7 out of 10 on a pain scale. 07:47 Reassessment: Patient is alert, oriented x 3, equal unlabored respirations, skin rs5 warm/dry/pink. Patient states feeling better. Pain: Complains of pain in lower back pain Pain does not radiate. Pain currently is 2 out of 10 on a pain scale. Quality of pain is described as aching, sharp. 07:47 Respiratory: Respiratory effort is even, unlabored, Respiratory pattern is regular, rs5 symmetrical. 07:50 Reassessment: Pt taken to CT by stretcher. rs5 08:09 Reassessment: Patient and/or family updated on plan of care and expected duration. Pain rs5 level reassessed. Pt back from CT scan. 09:15 Reassessment: Patient appears in no apparent distress at this time. Patient and/or hb family updated on plan of care and expected duration. Pain level reassessed. Patient is alert, oriented x 3, equal unlabored respirations, skin warm/dry/pink. 09:43 Reassessment:. Pain: Complains of pain in lower back pain Pain does not radiate. Pain rs5 currently is 6 out of 10 on a pain scale. Quality of pain is described as aching, sharp, Pt denies use of pain meds. Pt states "It's not that bad, I feel okay". 10:32 Reassessment: Tried calling report to [facility], nurse unavailable . rs5 11:03 Reassessment: Patient and/or family updated on plan of care and expected duration. Pain rs5 level reassessed. Patient is alert, oriented x 3, equal unlabored respirations, skin warm/dry/pink. Report given to Mercy Ratliff RN from [facility]. 11:25 Reassessment: assisted with bed ken, pt voided 150mls of clear yellow urine. . aa5 11:25 Reassessment: Patient is alert, oriented x 3, equal unlabored respirations, skin aa5 warm/dry/pink. 11:37 Reassessment: Awaiting [facility] for transfer, will administer morphine prior to aa transfer as ordered by . . 12:17 Reassessment: Patient and/or family updated on plan of care and expected duration. Pain rs5 level reassessed. Patient is alert, oriented x 3, equal unlabored respirations, skin warm/dry/pink. Pain: Complains of pain in lower back pain Pain radiates to lower legs bilat Pain currently is 7 out of 10 on a pain scale. Quality of pain is described as aching, sharp. 12:40 Reassessment: Patient and/or family updated on plan of care and expected duration. Pain rs5 level reassessed. Patient is alert, oriented x 3, equal unlabored respirations, skin warm/dry/pink. 12:40 Pain: Complains of pain in lower back pain Pain does not radiate. Pain currently is 4 rs5 out of 10 on a pain scale. Quality of pain is described as aching, sharp. Vital Signs: 07:02 BP 155 / 75; Pulse 65; Resp 18; Temp 98.2(O); Pulse Ox 100% ; Weight 87.54 kg; kd3 09:15 BP 154 / 70; Pulse 78; Resp 15; Pulse Ox 97% ; Pain 5/10; hb 09:41 BP 133 / 58; Pulse 72; Resp 14; Pulse Ox 95% on R/A; hb 10:30 BP 133 / 62; Pulse 61; Resp 14; Pulse Ox 94% on R/A; hb 12:00 BP 141 / 60; Pulse 70; Resp 17; Pulse Ox 97% on R/A; hb 09:15 Pain Scale: Adult hb ED Course: 07:00 Patient arrived in ED. rv1 07:02 Jewels Lao, KIET is Primary Nurse. kd3 07:02 Arm band placed on right wrist. kd3 07:02 Bed in low position. Call light in reach. Side rails up X2. rs5 07:03 Gagandeep Tapia MD is Attending Physician. rt 07:08 Triage completed. kd3 07:19 Maintain EMS IV. Dressing intact. Good blood return noted. Site clean \\T\\ dry. Gauge \\T\\ rs 5 site: 20g left AC. 08:06 CT Aorta for Dissection In Process Unspecified. EDMS 12:45 No provider procedures requiring assistance completed. Maintain EMS IV. Dressing rs5 intact. Good blood return noted. Site clean \\T\\ dry. Gauge \\T\\ site: 20 gauge left AC. Administered Medications: 07:30 Drug: morphine IVP or IV 4 mg Route: IVP; Infused Over: 4 mins; Site: left antecubital; rs5 07:47 Follow up: No adverse reaction noted rs5 09:20 Drug: Labetalol IV 10 mg Route: IV; Rate: calculated rate; Site: left forearm; hb 12:17 Drug: morphine IVP or IV 4 mg Route: IVP; Infused Over: 4 mins; Site: left antecubital; rs5 Medication: 12:45 VIS not applicable for this client. rs5 Intake: Outcome: 09:54 ER care complete, transfer ordered by . rt 12:45 Patient left the ED. hb 12:45 Transferred by ground EMS Note: [facility] rs5 12:45 Condition: stable 12:45 Discharge instructions given to patient, Instructed on the need for transfer, Demonstrated understanding of instructions. Signatures: Dispatcher [employer] EDWhit Vasquez, RN RN aa5 Pebbles Silvestre RN RN TashiaJewels, RN RN kd3 Gagandeep Tapia MD MD rt Viktoriya Morales rv1 Tim Bill RN RN rs5 Corrections: (The following items were deleted from the chart) 07:48 07:19 PMHx: Punctured Lung; rs5 rs5 07:48 07:19 PMHx: Fall; rs5 rs5 08:01 07:19 Respiratory: Airway is patent Respiratory effort is even, unlabored, Breath rs5 sounds are clear bilaterally. rs5 13:51 07:19 Neuro: Level of Consciousness is awake, alert, obeys commands, Oriented to rs5 person, place, time, situation, Air Hole Driller are equal bilaterally Weakness from waist down, Gait is steady, ambulates with a walker since pain began one week ago. Prior to pain, pt reports ambulating independently. rs5 13:52 12:40 Pain: Complains of pain in lower back pain Pain does not radiate. Pain currently rs5 is 4 out of 10 on a pain scale. Quality of pain is described as aching, sharp, rs5
[2023-01-30 12:54] VITALS: TEMP 98.2
--- NOTE | 2023-01-30 12:56 | EKG ---
Test Date: 2023-01-30 Test Time: 07:27:43 Ramp Manager: HB MEASUREMENT RESULTS: Intervals: Rate: 61 VA: 160 QRSD: 84 QT: 422 QTc: 424 Omer: P: 6 VA: 160 QRS: 85 T: 34 INTERPRETIVE STATEMENTS: Normal sinus rhythm Nonspecific ST abnormality Abnormal ECG Compared to ECG 04/08/2021 21:56:27 Left-axis deviation no longer present ST (T wave) deviation still present Electronically Signed On 01-30-23 12:55:24 CDT by Alfa Pendleton
[2023-01-30 12:59] VITALS: BP 141/60; O2SAT 97
== END 2023-01-30 12:45 | disposition short-term general hospital (02) ==
LOC: ER 06:55
DX: I71.02 Dissection of abdominal aorta (principal); S32.029A Unspecified fracture of second lumbar vertebra, initial encounter for closed fracture; I10 Essential (primary) hypertension
CPT/HCPCS: 93005; 87088; 85025; 81001; 87086; 36415; 84484; 80053; 71275; 74175; Q9967